=== PATIENT | male | born 1940 | race Caucasian/White ===

== ENCOUNTER 2019-05-14 12:42 | Inpatient (IN) ==
--- NOTE | 2019-05-14 13:08 | Emergency Department Note ---
Entered by Teresa Bueno acting as a scribe for Samuel Pardo M.D. History of Present Illness General Chief complaint: Hyperglycemia Time Seen by Provider: 05/14/19 12:57 Source: patient History of Present Illness Onset (ago): hour(s) (this morning) Location: head (general) Pain Consistency: + other (persistent ) Quality: + other (weakness) Associated symptoms: + cough (productive ) and + other (positive cold symptoms; negative pain); no fever/chills Treatments prior to arrival: other (antibiotics) The patient is a 78 year old male with PMHx Hypothyroidism, HLD, Type 2 diabetes, BPH, HTN, CKD stage 3, and adenocarcinoma of lower esophagus who presents to the Emergency Room with complaints of persistent weakness that began this morning. He reports cold symptoms and a productive cough during this time. The patient states that he was diagnosed with pneumonia yesterday and was given antibiotics. He states that he took these this morning. The patient denies taking his insulin last night or today. The patient denies pain and fevers. He reports that he had a biopsy done on his lung at [place] on Monday, 3 days ago. Home Medications Home Medications Medication Instructions Recorded Confirmed Type Lantus U-100 Insulin 90 unit SUBCUT BID 04/20/18 05/14/19 History Ferron-3 Fish Oil 1 cap PO DAILY 04/20/18 05/14/19 History cholecalciferol (vitamin D3) 2,000 unit PO DAILY 04/20/18 05/14/19 History [Vitamin D3] insulin aspart U-100 40 unit SUBCUT AC 04/20/18 05/14/19 History levothyroxine [Levoxyl] 125 mcg PO DAILY 04/20/18 05/14/19 History cyanocobalamin (vitamin B-12) 3,000 mcg PO DAILY 12/25/18 05/14/19 History 3,000 mcg capsule lisinopril 20 1 tab PO DAILY 12/25/18 05/14/19 History mg-hydrochlorothiazide 25 mg tablet apixaban [Eliquis] 5 mg PO BID 05/10/19 05/14/19 History lisinopril 5 mg PO DAILY 05/10/19 05/14/19 History sennosides-docusate sodium 1 tab-cap PO BID PRN 05/10/19 05/14/19 History [Senokot-S] sertraline 200 mg PO DAILY 05/10/19 05/14/19 History enoxaparin 70 mg SUBCUT Q12H 05/14/19 05/14/19 History Allergies Allergy/AdvReac Type Severity Reaction Status Date / Time codeine Allergy Intermediate Swelling Verified 05/14/19 14:13 thimerosal Allergy Intermediate Swelling Verified 05/14/19 14:13 Past Med/Surg History Medical History Adenocarcinoma of esophagus (Chronic) BPH (benign prostatic hyperplasia) (Chronic) CKD (chronic kidney disease) stage 3, GFR 30-59 ml/min (Chronic) Depression (Chronic) H/O deep venous thrombosis (Resolved) HTN (hypertension) (Chronic) Hx antineoplastic chemotherapy (Resolved) Hyperlipidemia (Chronic) Hypothyroidism (Chronic) Iron deficiency anemia (Chronic) Morbid obesity (Chronic) Neuropathy (Chronic) Osteoarthritis (Chronic) 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 Brother , Passed as a child due to drowning No problems noted. Brother No problems noted. Sister , Passed age 82 of [place] No problems noted. Daughter No problems noted. Daughter No problems noted. Son No problems noted. Family/Other Bladder cancer Granddaughter - Currently has () Cervical ca Had resected - no recurrence Social History Preferred Language: Vietnamese Communication Ability: Effective Visual Impairment: No Limitations Hearing Ability: Normal Contact Center Analyst Required: No Beliefs That Will Affect Care: None marital status: Current Living Situation: Alone Current Living Situation Comment: "daughter lives in house next to me" current occupational status: retired current occupation: Retired [employer] Other Information That Helps Us Care for You: Yes Feels Safe at Home: Yes Safety Concerns: Feels Safe At This Time Smoking Status: Former smoker Tobacco Type: cigarettes ; packs per day: 3 ; Cigarettes Per Day: 1.5 packs/day ; Do You Dip or Chew Tobacco: No ; Second Hand Exposure: Yes ; Tobacco Cessation Education Requested by Patient: No Hx Alcohol Use: No Hx Substance Use: No Childhood Exposure to Second-Hand Smoke: Yes caffeine: Yes (2-3 cups of coffee/day) Review of Systems See HPI for pertinent positives & negatives. and A total of 10 systems reviewed and were otherwise negative Physical Exam Vital Signs Vital Signs - 24 hr 05/14/19 12:58 05/14/19 14:33 05/14/19 15:07 Temperature 36.8 C Temperature Source Oral Pulse Rate 94 H Pulse Rate [Apical] 90 Pulse Rate [Left Finger] 92 H Respiratory Rate 20 22 18 Respiratory Effort / Characteristics Non-Labored Spontaneous Blood Pressure 141/69 H Blood Pressure [Left Arm] 151/69 H Blood Pressure Mean 93 Blood Pressure Mean [Left Arm] 96 Pulse Oximetry 92 92 92 Oxygen Delivery Method Room Air Room Air Room Air Sepsis Recent Fever Within 48 Hours No Sepsis New/Unexplained Change in Mental Status No Sepsis Action Taken by Nursing No Action Required GENERAL: Awake, alert, weak-appearing, in no distress. Poor historian. HENT: Normocephalic, atraumatic. EYES: Normal conjunctiva. Sclera non-icteric. NECK: Supple. No nuchal rigidity. RESPIRATORY: Normal respiratory effort. CTAB. CARDIAC: Normal rate. Normal rhythm. Extremities warm and well perfused. GI: Soft, non-distended. No tenderness to palpation. No rebound or guarding. No masses. RECTAL: Deferred. MUSCULOSKELETAL: Atraumatic. Chest examination reveals no tenderness. There is no CVA tenderness to palpation. LOWER EXTREMITIES: Calves are equal size bilaterally and non-tender. No edema NEURO: Normal sensorium. No sensory or motor deficits noted. No facial droop. SKIN: Warm and dry. No rash or jaundice noted. Course Course 1302: Past medical records reviewed. The patient was evaluated in room C9. A complete history and physical exam was performed. 1420: I checked on and updated the patient on all results. 1500: I discussed the case with Kaykay Cruz PA-C who accepts the patient for further evaluation under Dr. Gupta Hospitalist service. 1507: I discussed the case with Dr. Sauer-Nephrology who recommends imaging, a childress catheter, and bicarbonate for the patient. Administered Medications Sodium Bicarbonate 150 meq/ (Dextrose) 1,150 mls @ 125 mls/hr IV .Q9H12M NAJMA Stop: 06/13/19 15:14 Last Admin: 05/14/19 15:43 Dose: 125 mls/hr Documented by: [id number] Discontinued Medications Albuterol (Duoneb) 3 ml NEB NOW STA Stop: 05/14/19 14:50 Last Admin: 05/14/19 15:06 Dose: 3 ml Documented by: [id number] Sodium Chloride (Nss) 500 mls @ 999 mls/hr IV .Q31M NAJMA Stop: 05/14/19 13:45 Last Infusion: 05/14/19 16:20 Dose: 0 mls/hr Documented by: [id number] Admin: 05/14/19 13:53 Dose: 999 mls/hr Documented by: [id number] Piperacillin Sod/Tazobactam Sod (Zosyn) 4.5 gm in 120 mls @ 240 mls/hr IV NOW ONE Stop: 05/14/19 14:49 Last Infusion: 05/14/19 16:20 Dose: 0 mls/hr Documented by: [id number] Admin: 05/14/19 14:32 Dose: 240 mls/hr Documented by: [id number] Calcium Gluconate 1,000 mg/ (Sodium Chloride) 60 mls @ 240 mls/hr IV NOW STA Stop: 05/14/19 15:02 Last Infusion: 05/14/19 16:20 Dose: 0 mls/hr Documented by: [id number] Admin: 05/14/19 15:43 Dose: 240 mls/hr Documented by: [id number] Sodium Chloride (Nss 1000ml) 2,000 mls @ 999 mls/hr IV .Q2H1M ONE Stop: 05/14/19 16:49 Last Infusion: 05/14/19 17:44 Dose: 0 mls/hr Documented by: [id number] Admin: 05/14/19 15:03 Dose: 999 mls/hr Documented by: [id number] Insulin Human Regular (Novolin R U-100 Per Unit) 10 units IV NOW STA Stop: 05/14/19 14:57 Last Admin: 05/14/19 15:03 Dose: 10 units Documented by: [id number] Cosigned by: [id number] Sodium Bicarbonate (Sodium Bicarbonate 8.4%) 50 meq IV NOW STA Stop: 05/14/19 14:50 Last Admin: 05/14/19 15:03 Dose: 50 meq Documented by: [id number] Critical Care Time Critical Care Time: Yes Total Critical Care Time: 54 I have personally spent 54 minutes of critical care time in the direct management of this patient. This includes bedside care, interpretation of diagnostic studies, and testing, discussion with consultants, patient, and family members, and other required patient management activities. This 54 minutes is in excess of all separately billable procedures. Medical Decision Making Differential Diagnosis Differential Diagnosis includes but is not limited to dehydration, stroke, anemia, hypoglycemia, hyponatremia, hypernatremia, urinary tract infection, sepsis, gastroenteritis, additional abdominal pathology, metabolic abnormalities and infections, pneumonia, bronchitis, COPD/Asthma exacerbation, pneumothorax, pulmonary embolism, congestive heart failure, acute coronary syndrome, and others were considered. Medical Records Attestation: I reviewed the patient's medical records. Home Medications Current Medication List: was personally reviewed by me Laboratory Data Attestation: I reviewed the patient's lab results. Result diagrams: 05/14/19 13:57 05/14/19 13:57 Lab Results 05/14/19 05/14/19 05/14/19 Range/Units 12:56 13:30 13:57 WBC (4.8-10.8) K/uL RBC (4.7-6.1) M/uL Hgb (14.0-18.0) g/dL Hct (42-52) % MCV (80-100) fL MCH (25-34) pg MCHC (32-36) g/dL RDW Std Deviation (36.4-46.3) fL RDW Coeff of Katja (11.5-14.5) % Plt Count (130-400) K/uL MPV (7.4-10.4) fL Immature Gran % (Auto) % Neut % (Auto) % Lymph % (Auto) % Hendry % (Auto) % Eos % (Auto) % Baso % (Auto) % Immature Gran # (Auto) (0.00-0.02) K/uL Neut # (Auto) (1.4-6.5) K/uL Lymph # (Auto) (1.2-3.4) K/uL Hendry # (Auto) (0.11-0.59) K/uL Eos # (Auto) (0-0.5) K/uL Baso # (Auto) (0-0.2) K/uL Sodium (136-145) mmol/L Potassium (3.5-5.1) mmol/L Chloride (98-107) mmol/L Carbon Dioxide (21-32) mmol/L Anion Gap (3-11) BUN (7-18) mg/dl Creatinine (0.6-1.4) mg/dl Est Cr Clr Drug Dosing ml/min Est GFR ( Amer) Est GFR (Non-Af Amer) BUN/Creatinine Ratio (10-20) Glucose (70-99) mg/dl POC Glucose 465 H* (70-99) Lactate 2.6 H* (0.4-2.0) mmol/L Uric Acid (2.6-7.2) mg/dl Calcium (8.5-10.1) mg/dl Phosphorus (2.5-4.9) mg/dl Magnesium (1.8-2.4) mg/dl Total Bilirubin (0.2-1) mg/dl AST (15-37) U/L ALT (12-78) U/L Alkaline Phosphatase (45-117) U/L Troponin I (0-0.045) ng/ml Total Protein (6.4-8.2) gm/dl Albumin (3.4-5.0) gm/dl Globulin (2.5-4.0) gm/dl Albumin/Globulin Ratio (0.9-2) Beta-Hydroxybutyric Acd (0.2-2.81) mg/dl TSH (0.300-4.500) uIu/ml Influenza Type A (PCR) Neg for Influ A (Neg) Influenza Type B (PCR) Neg for Influ B (Neg) 05/14/19 05/14/19 05/14/19 Range/Units 13:57 13:57 13:57 WBC 42.19 H* (4.8-10.8) K/uL RBC 3.43 L (4.7-6.1) M/uL Hgb 10.8 L (14.0-18.0) g/dL Hct 33.5 L (42-52) % MCV 97.7 (80-100) fL MCH 31.5 (25-34) pg MCHC 32.2 (32-36) g/dL RDW Std Deviation 49.9 H (36.4-46.3) fL RDW Coeff of Katja 14.1 (11.5-14.5) % Plt Count 586 H (130-400) K/uL MPV 8.5 (7.4-10.4) fL Immature Gran % (Auto) 1.9 % Neut % (Auto) 94.1 % Lymph % (Auto) 1.9 % Hendry % (Auto) 1.9 % Eos % (Auto) 0.0 % Baso % (Auto) 0.2 % Immature Gran # (Auto) 0.81 H (0.00-0.02) K/uL Neut # (Auto) 39.66 H (1.4-6.5) K/uL Lymph # (Auto) 0.81 L (1.2-3.4) K/uL Hendry # (Auto) 0.82 H (0.11-0.59) K/uL Eos # (Auto) 0.01 (0-0.5) K/uL Baso # (Auto) 0.08 (0-0.2) K/uL Sodium 129 L (136-145) mmol/L Potassium 7.9 H* (3.5-5.1) mmol/L Chloride 101 (98-107) mmol/L Carbon Dioxide 17 L (21-32) mmol/L Anion Gap 11.0 (3-11) BUN 65 H (7-18) mg/dl Creatinine 4.11 H (0.6-1.4) mg/dl Est Cr Clr Drug Dosing 19.5 ml/min Est GFR ( Amer) 15.1 Est GFR (Non-Af Amer) 13.0 BUN/Creatinine Ratio 15.9 (10-20) Glucose 493 H* (70-99) mg/dl POC Glucose (70-99) Lactate (0.4-2.0) mmol/L Uric Acid 8.2 H (2.6-7.2) mg/dl Calcium 9.1 (8.5-10.1) mg/dl Phosphorus 4.5 (2.5-4.9) mg/dl Magnesium 1.9 (1.8-2.4) mg/dl Total Bilirubin 0.2 (0.2-1) mg/dl AST 105 H (15-37) U/L ALT 58 (12-78) U/L Alkaline Phosphatase 107 (45-117) U/L Troponin I 0.019 (0-0.045) ng/ml Total Protein 8.5 H (6.4-8.2) gm/dl Albumin 2.6 L (3.4-5.0) gm/dl Globulin 5.9 H (2.5-4.0) gm/dl Albumin/Globulin Ratio 0.4 L (0.9-2) Beta-Hydroxybutyric Acd 4.73 H (0.2-2.81) mg/dl TSH 3.100 (0.300-4.500) uIu/ml Influenza Type A (PCR) (Neg) Influenza Type B (PCR) (Neg) Imaging Data Radiologist's Impression: Radiology results as stated below per my review and the radiologist's interpretation: XR chest 1V portable CLINICAL HISTORY: weakness COMPARISON STUDY: 05/10/2019 FINDINGS: The cardiac and mediastinal contours remain stable. A right-sided A- Port catheter is again visualized. A 4.5 cm right midlung zone is again visualized.[There are no pleural effusions. There is no pneumothorax. There is no failure. IMPRESSION: 1. Persistent 4.5 cm right midlung zone opacity. No significant change from the preceding study. Electronically signed by: Filippo Quiles M.D. 05/14/2019 1:[address] SCAN OF THE ABDOMEN AND PELVIS WITHOUT IV CONTRAST CLINICAL HISTORY: Renal failure. COMPARISON STUDY: PET/CT dated 04/27/2019. TECHNIQUE: CT scan of the abdomen and pelvis is performed from the lung bases to the proximal femora. Images are reviewed in the axial, sagittal, and coronal planes. IV contrast was not administered for this examination due to poor renal function. Note that the examination is suboptimal without oral and IV contrast. A dose lowering technique was utilized adhering to the principles of ALARA. CT DOSE: 1697.25 mGy.cm FINDINGS: Lung bases: The heart is normal in size and without pericardial effusion. There is a 5.3 cm mass lesion in the right lung base. Trace pleural effusions are noted with bibasilar scarring/atelectasis. A calcified granuloma is noted at the left lung base. There is a small hiatal hernia. Liver: The unenhanced liver is normal in size, contour, and attenuation. There is no intrahepatic biliary ductal dilatation. Gallbladder: Unremarkable. Spleen: Normal in size and attenuation. Pancreas: The unenhanced pancreas is atrophic and grossly unremarkable. Adrenal glands: Unremarkable. Kidneys: The unenhanced kidneys are atrophic and without hydronephrosis. There are no renal calculi identified. Cortical and parapelvic cyst in the left kidney measure up to 4.7 cm. Additional smaller cysts are seen bilaterally. Abdominal vasculature: The abdominal aorta is normal in course and caliber noting moderate atherosclerotic calcification. Bowel: There is moderate colonic fecal retention. No bowel obstruction is seen. There is mild/moderate colonic diverticulosis without CT evidence of acute diverticulitis. The appendix is not visualized. Peritoneum: There is no intraperitoneal free air or abdominal ascites. Lymphadenopathy: None. Pelvic viscera: The prostate gland is enlarged and heterogeneous noting median lobe hypertrophy. The bladder is distended. The bladder wall is mildly thickened and trabeculated indicating chronic outlet obstruction. Skeletal structures: The skeletal structures are osteopenic. Moderate lumbosacral spondylosis is observed. 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 Advanced osteoarthritic change is noted in the left hip. No lytic or blastic lesions are seen. IMPRESSION: 1. There are no acute infectious or inflammatory findings in the abdomen or pelvis. 2. The kidneys are atrophic and without hydronephrosis. 3. The bladder is distended. The prostate gland is enlarged and there is evidence of chronic outlet obstruction. 4. A 5.3 cm mass lesion is seen at the right lung base. Correlation with the patient's oncological history will be required. 5. Trace pleural effusions. 6. Constipation. 7. Additional findings as above. Electronically signed by: Angel Luis Greene M.D. 05/14/2019 4:47 PM ECG Data Attestation: I personally reviewed and interpreted this ECG as follows: Indication: + SOB/dyspnea Rate (beats per minute): 92 Rhythm: + normal sinus ECG Intervals/blocks: + Left bundle branch block; no Normal QRS (Widened) ECG [place]: + Left axis deviation ECG ST segments: no ST elevation ECG Findings: no PVCs Comparison ECG Date: from (03/26/1997) Change: the following changes noted (left bundle branch block is new ) Blood Pressure Blood Pressure Findings: Elevated blood pressure Blood Pressure Disposition: further management by hospitalist LESLEY Narrative Patient is a 78-year-old gentleman with a history of CKD, hypertension, type 2 diabetes, hypothyroidism, and venous stasis ulcerations presenting today via ambulance with report of elevated blood sugar and weakness. Patient states he follows at the [facility]. The patient reports that he had a lung biopsy over the weekend and yesterday was diagnosed with pneumonia. Reportedly started Au gmentin and doxycycline. States feels weak overnight and take any insulin last night or this morning. Was too weak to get out of bed this morning and did not have much to eat. Blood sugar into the 500s for EMS and in the mid 400s upon check here. Patient has no significant wounds on his lower extremities and no significant edema, trace only. Patient does endorse some URI symptoms. Endorses a bit of a cough. Is on anticoagulation per his report. No trauma reported. No focal deficits. Patient denies any pain. Patient is a poor historian. Basic lab work were obtained along with blood cultures, lactate, influenza testing and basic labs along with chest x-ray. Given fluid bolus here. Review of medical records shows evidence that the patient had a CT-guided biopsy here on the with pathology showing concerning findings for lung abscess. Patient with significant leukocytosis here. Given microbiology from the prior biopsy started on Zosyn for broad-spectrum coverage including anaerobes. Blood cultures were again were obtained. Patient requires admission for further care of his lung abscess/infection likely causing his weakness. Discussed with case management who conferred with the [facility] given insurance status. Patient's laboratory studies significantly returned with evidence of acute renal failure with creatinine greater than 4 and hyperkalemia with hyponatremia. Discussed with hospitalist and nephrology for admission. Given calcium, bicarbonate, insulin, IV fluid, DuoNeb to help with his hyperkalemia. EKG with QRS widening. [facility] later relates the patient had a creatinine of about 2.1 yesterday and a potassium around 6. Records are pending from there. Family later arrives and confirms this. Evidently received a dose of Kayexalate without bowel movement since yesterday. Childress was placed with several hundred of moderately dark urine coming out. More recent output appears lightening in color. Ct abdomen pelvis with no hydronephrosis and some chronic outlet obstruction. Hospitalist team to follow closely on the floor. Impression & Plan Acute renal failure, Hyperkalemia, Sepsis, Abscess of lung, Dehydration Discharge Plan Visit Data *Final* Discharge Date/Time: 05/14/19 17:20 Chief Complaint: Hyperglycemia ED Provider: Samuel Pardo Discharge Problem: Acute renal failure, Hyperkalemia, Sepsis, Abscess of lung, Dehydration Patient Disposition: Admitted As Inpatient Discharge Instructions Interventions: ED Discharge Assessment Last Done: 05/14/19 17:20 Discharge Problem: Acute renal failure Qualifiers: Acute renal failure type: unspecified Qualified Code(s): N17.9 - Acute kidney failure, unspecified Sepsis Qualifiers: Sepsis type: sepsis due to unspecified organism Sepsis acute organ dysfunction status: with acute organ dysfunction Severe sepsis acute organ dysfunction type: acute renal failure Acute renal failure type: unspecified Severe sepsis shock status: without septic shock Qualified Code(s): A41.9 - Sepsis, unspecified organism Abscess of lung Qualifiers: Pulmonary abscess pneumonia presence: with pneumonia Laterality: right Lung location: middle lobe of lung Qualified Code(s): J85.1 - Abscess of lung with pneumonia The scribe's documentation has been prepared under my direction and personally reviewed by me in its entirety. I confirm that the note above accurately reflects all work, treatment, procedures, and medical decision making performed by me.
[2019-05-14] MEDS ORDERED: SODIUM CHLORIDE 0.9% 500 ML IV SCH (13:15)
--- NOTE | 2019-05-14 13:36 | XRay Report ---
XR chest 1V portable CLINICAL HISTORY: weakness COMPARISON STUDY: 05/10/2019 FINDINGS: The cardiac and mediastinal contours remain stable. A right-sided A-Port catheter is again visualized. A 4.5 cm right midlung zone is again visualized.[There are no pleural effusions. There is no pneumothorax. There is no failure. IMPRESSION: 1. Persistent 4.5 cm right midlung zone opacity. No significant change from the preceding study. Electronically signed by: Filippo Quiles M.D. 05/14/2019 1:35 PM
[2019-05-14 14:16] LABS: Hematocrit (blood only) 33.5 % (42-52); Hemoglobin 10.8 g/dL (14.0-18.0); Mean Corpuscular Hemoglobin 31.5 pg (25-34); Mean Corpuscular Hgb Conc 32.2 g/dL (32-36); Mean Corpuscular Volume 97.7 fL (80-100); Mean Platelet Volume 8.5 fL (7.4-10.4); Platelet Count 586 K/uL (130-400); RDW Coefficient of Variation 14.1 % (11.5-14.5); RDW Standard Deviation 49.9 fL (36.4-46.3); Red Blood Count 3.43 M/uL (4.7-6.1); White Blood Count 42.19 K/uL (4.8-10.8)
[2019-05-14 14:20] LABS: Influenza A virus by PCR Neg for Influ A (Neg); Influenza B virus by PCR Neg for Influ B (Neg)
[2019-05-14] MEDS ORDERED: PIPERACILLIN/TAZOBACTAM 4.5 GM/120 ML BAG IV ONE (14:20)
[2019-05-14] MEDS ORDERED: PIPERACILL/TAZOBAC CONSULT ACTIVE PRN ×2 (14:20→17:45)
[2019-05-14 14:44] LABS: Albumin Globulin Ratio 0.4 (0.9-2); Albumin Level 2.6 gm/dl (3.4-5.0); BUN Creatinine Ratio 15.9 (10-20); Bilirubin,Total 0.2 mg/dl (0.2-1); Calcium 9.1 mg/dl (8.5-10.1); Creatinine Clr Calc Pharmacy 19.5 ml/min; Est GFR (African American) 15.1; Globulin 5.9 gm/dl (2.5-4.0); Magnesium 1.9 mg/dl (1.8-2.4); Potassium 7.9 mmol/L (3.5-5.1); Thyroid Stimulating Hormone 3.1 uIu/ml (0.300-4.500); Total Protein 8.5 gm/dl (6.4-8.2); Troponin I 0.019 ng/ml (0-0.045)
[2019-05-14] MEDS ORDERED: CALCIUM GLUCONATE 10% 1,000 MG in SODIUM CHLORIDE 0.9% 50 ML IV STA (14:48)
[2019-05-14] MEDS ORDERED: SODIUM BICARB 8.4% INJ 50 MEQ/50 ML SYR IV STA (14:49)
[2019-05-14] MEDS ORDERED: SODIUM CHLORIDE 0.9% 1000ML 2,000 ML IV ONE (14:49)
[2019-05-14] MEDS ORDERED: ALBUT/IPRATROP 3MG/0.5MG NEB 3 ML VIAL NEB STA (14:49)
[2019-05-14 14:51] LABS: Basophils # (auto) 0.08 K/uL (0-0.2); Basophils % (auto) 0.2 %; Eosinophils # (auto) 0.01 K/uL (0-0.5); Immature Granulocytes # (auto) 0.81 K/uL (0.00-0.02); Immature Granulocytes % (auto) 1.9 %; Lymphocytes # (auto) 0.81 K/uL (1.2-3.4); Lymphocytes % (auto) 1.9 %; Monocytes # (auto) 0.82 K/uL (0.11-0.59); Monocytes % (auto) 1.9 %; Neutrophils # (auto) 39.66 K/uL (1.4-6.5); Neutrophils % (auto) 94.1 %
[2019-05-14] MEDS ORDERED: NovoLIN-R INSULIN PER UNIT CHARGE IV STA (14:56)
[2019-05-14 15:09] LABS: Beta-Hydroxybutyrate 4.73 mg/dl (0.2-2.81)
[2019-05-14] MEDS ORDERED: SODIUM BICARBONATE 8.4% 100 MEQ in WATER, STERILE 1,000 ML IV SCH (15:15)
[2019-05-14] MEDS: SODIUM BICARBONATE 8.4% 150 MEQ in DEXTROSE 5% 1,000 ML IV SCH (15:43)
--- NOTE | 2019-05-14 15:56 | History & Physical Report ---
Date of Service May 14, 2019 Assessment & Plan (1) Sepsis: (2) Leukemoid reaction: (3) Pneumonia: (4) Acute renal failure: (5) CKD (chronic kidney disease) stage 3, GFR 30-59 ml/min: (6) Hyperkalemia: (7) Adenocarcinoma of lower esophagus: (8) Morbid obesity: (9) Depression: (10) HTN (hypertension): (11) Type 2 diabetes mellitus: (12) Hyperlipidemia: (13) Hypothyroidism: (14) Hyponatremia: 78 yo male c Sepsis and Leukemoid reaction sec to RLL Pneumonia. Sepsis causing acute renal failure and then resultant hyperkalemia along c [facility]ME-I Nephrology evaluation, he has been given sodium bicarb, Insulin, Glucose, and calcium gluconate in the emergency room, he was given Kayexalate at the [facility], uric acid and phosphorus have been ordered, serial labs, he has been started on antibiotics, Infectious Disease has been consulted for Sepsis and the leukemoid reaction, IV fluids, nebulizers. Serial labs, Tele-PCU History of Present Illness 78-year-old white male with a past medical history of lung mass, pneumonia, DVT, obesity, hypertension, hypothyroidism, chronic kidney disease who comes in complaining of generalized weakness. He said it got progressively worse over the last couple of days when he came into the emergency room he was found to have a blood sugar of 500 and white blood cell count of 42. He was also found to have a potassium of 7.9 and was hyponatremic and hyperkalemic. He was seen at [facility] on 13 May. At that tome they wanted to admit him, but he didn't want to stay. During that encounter, his WBCs were 17.6 and was sent home on Augmentin and Doxycycline. Today his WBCs are 42, but he doesn't look bad at all. At the [facility] his CXR showed a RLL masslike consolidation favoring to reflect Pneumonia-underlying malignancy not excluded. PMH-lung cancer, DVT, chronic kidney disease, obesity, hypertension, hypothyroidism, diabetes. PSH-appendectomy FH mother of pneumonia, father of a CVA, he has 3 healthy children. SOC-quit tobacco 10 years ago was a pack-a-day smoker for 45 years, occasionally drinks alcohol he is a and he retired from a [employer] Primary Care Provider: Jovan Ren MD Allergies Allergy/AdvReac Type Severity Reaction Status Date / Time codeine Allergy Intermediate Swelling Verified 05/14/19 14:13 thimerosal Allergy Intermediate Swelling Verified 05/14/19 14:13 Home Medications Home Medications Medication Instructions Recorded Confirmed Type Lantus U-100 Insulin 90 unit SUBCUT BID 04/20/18 05/14/19 History [place]-3 Fish Oil 1 cap PO DAILY 04/20/18 05/14/19 History cholecalciferol (vitamin D3) 2,000 unit PO DAILY 04/20/18 05/14/19 History [Vitamin D3] insulin aspart U-100 40 unit SUBCUT AC 04/20/18 05/14/19 History levothyroxine [Levoxyl] 125 mcg PO DAILY 04/20/18 05/14/19 History cyanocobalamin (vitamin B-12) 3,000 mcg PO DAILY 12/25/18 05/14/19 History 3,000 mcg capsule lisinopril 20 1 tab PO DAILY 12/25/18 05/14/19 History mg-hydrochlorothiazide 25 mg tablet apixaban [Eliquis] 5 mg PO BID 05/10/19 05/14/19 History lisinopril 5 mg PO DAILY 05/10/19 05/14/19 History sennosides-docusate sodium 1 tab-cap PO BID PRN 05/10/19 05/14/19 History [Senokot-S] sertraline 200 mg PO DAILY 05/10/19 05/14/19 History enoxaparin 70 mg SUBCUT Q12H 05/14/19 05/14/19 History Past Med/Surg History Medical History Adenocarcinoma of esophagus (Chronic) BPH (benign prostatic hyperplasia) (Chronic) CKD (chronic kidney disease) stage 3, GFR 30-59 ml/min (Chronic) Depression (Chronic) H/O deep venous thrombosis (Resolved) HTN (hypertension) (Chronic) Hx antineoplastic chemotherapy (Resolved) Hyperlipidemia (Chronic) Hypothyroidism (Chronic) Iron deficiency anemia (Chronic) Morbid obesity (Chronic) Neuropathy (Chronic) Osteoarthritis (Chronic) 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 Brother , Passed as a child due to drowning No problems noted. Brother No problems noted. Sister , Passed age 82 of [place] No problems noted. Daughter No problems noted. Daughter No problems noted. Son No problems noted. Family/Other Bladder cancer Granddaughter - Currently has () Cervical ca Had resected - no recurrence Social History Preferred Language: Montenegrin Communication Ability: Effective Visual Impairment: No Limitations Hearing Ability: Normal Coiled Tubing Operator Required: No Beliefs That Will Affect Care: None marital status: Current Living Situation: Alone Current Living Situation Comment: "daughter lives in house next to me" current occupational status: retired current occupation: Retired [employer] Feels Safe at Home: Yes Smoking Status: Former smoker Tobacco Type: cigarettes ; packs per day: 3 ; Cigarettes Per Day: 1.5 packs/day ; Second Hand Exposure: No ; Hx Alcohol Use: No Hx Substance Use: No Childhood Exposure to Second-Hand Smoke: Yes caffeine: Yes (2-3 cups of coffee/day) Results & Data Vital Signs (Past 12 Hours) Vital Signs Temp Pulse Pulse Pulse Resp BP BP 05/14/19 15:07 92 H 18 05/14/19 14:33 90 22 151/69 H 05/14/19 12:58 36.8 C 94 H 20 141/69 H Pulse Ox 05/14/19 15:07 92 05/14/19 14:33 92 05/14/19 12:58 92 Allergies codeine Allergy (Intermediate, Verified 05/14/19 14:13) Swelling thimerosal Allergy (Intermediate, Verified 05/14/19 14:13) Swelling Height/Weight/Isolation Height 5 ft 10 in Weight 123.6 kg Chemistry 05/14/19 13:57 Sodium 129 L Potassium 7.9 H* Chloride 101 Carbon Dioxide 17 L Anion Gap 11.0 BUN 65 H Creatinine 4.11 H Glucose 493 H* Microbiology 05/14/19 13:37 Blood Aerobic Blood Culture - Pending 05/14/19 13:37 Blood Anaerobic Blood Culture - Pending 05/14/19 13:47 Blood Aerobic Blood Culture - Pending 05/14/19 13:47 Blood Anaerobic Blood Culture - Pending Code Status & VTE Plan VTE Prophylaxis Plan VTE Prophylaxis will be ordered: Yes
[2019-05-14 16:04] LABS: Phosphorus 4.5 mg/dl (2.5-4.9); Uric Acid 8.2 mg/dl (2.6-7.2)
--- NOTE | 2019-05-14 16:48 | CT Scan Report ---
CT SCAN OF THE ABDOMEN AND PELVIS WITHOUT IV CONTRAST CLINICAL HISTORY: Renal failure. COMPARISON STUDY: PET/CT dated 04/27/2019. TECHNIQUE: CT scan of the abdomen and pelvis is performed from the lung bases to the proximal femora. Images are reviewed in the axial, sagittal, and coronal planes. IV contrast was not administered for this examination due to poor renal function. Note that the examination is suboptimal without oral an d IV contrast. A dose lowering technique was utilized adhering to the principles of ALARA. CT DOSE: 1697.25 mGy.cm FINDINGS: Lung bases: The heart is normal in size and without pericardial effusion. There is a 5.3 cm mass lesi on in the right lung base. Trace pleural effusions are noted with bibasilar scarring/atelectasis. A c alcified granuloma is noted at the left lung base. There is a small hiatal hernia. Liver: The unenhanced liver is normal in size, contour, and attenuation. There is no intrahepatic jesus iary ductal dilatation. Gallbladder: Unremarkable. Spleen: Normal in size and attenuation. Pancreas: The unenhanced pancreas is atrophic and grossly unremarkable. Adrenal glands: Unremarkable. Kidneys: The unenhanced kidneys are atrophic and without hydronephrosis. There are no renal calculi i dentified. Cortical and parapelvic cyst in the left kidney measure up to 4.7 cm. Additional smaller c ysts are seen bilaterally. Abdominal vasculature: The abdominal aorta is normal in course and caliber noting moderate atheroscle rotic calcification. Bowel: There is moderate colonic fecal retention. No bowel obstruction is seen. There is mild/moderat e colonic diverticulosis without CT evidence of acute diverticulitis. The appendix is not visualized . Peritoneum: There is no intraperitoneal free air or abdominal ascites. Lymphadenopathy: None. Pelvic viscera: The prostate gland is enlarged and heterogeneous noting median lobe hypertrophy. The bladder is distended. The bladder wall is mildly thickened and trabeculated indicating chronic outlet obstruction. Skeletal structures: The skeletal structures are osteopenic. Moderate lumbosacral spondylosis is obse rved. 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 Advanced osteoarthritic ch delores is noted in the left hip. No lytic or blastic lesions are seen. IMPRESSION: 1. There are no acute infectious or inflammatory findings in the abdomen or pelvis. 2. The kidneys are atrophic and without hydronephrosis. 3. The bladder is distended. The prostate gland is enlarged and there is evidence of chronic outlet o bstruction. 4. A 5.3 cm mass lesion is seen at the right lung base. Correlation with the patient's oncological hi story will be required. 5. Trace pleural effusions. 6. Constipation. 7. Additional findings as above. Electronically signed by: Angel Luis Greene M.D. 05/14/2019 4:47 PM
[2019-05-14 17:13] LABS: Appearance Urine Cloudy (Clear); Bacteria Urine Automated Negative (Negative); Bilirubin Urine Negative (Negative); Blood Urine 3+ (Negative); Color Urine Yellow; Glucose Urine UA 1+ (Negative); Ketones Urine Negative (Negative); Leukocyte Esterase Urine Negative (Negative); Nitrite Urine Negative (Negative); Protein Urine 1+ (Negative); Specific Gravity Urine 1.021 (1.000-1.030); Urobilinogen Urine Negative (Negative)
[2019-05-14 17:38] LABS: Renal Epithelial Cells Urine 0-5 /lpf (0-5)
[2019-05-14] MEDS ORDERED: DOCUSATE SODIUM/SENNA 50/8.6MG TAB PO PRN (17:45)
[2019-05-14] MEDS ORDERED: ACETAMINOPHEN 325 MG TAB PO PRN (17:45)
[2019-05-14] MEDS ORDERED: GLUCOSE 10 TABS/TUBE PO PRN (17:45)
[2019-05-14] MEDS ORDERED: GLUCAGON FOR INJ 1 MG VIAL SQ PRN (17:45)
[2019-05-14] MEDS ORDERED: ALUMINUM/MAGNESIUM SUSP 30 ML UDC PO PRN (17:45)
[2019-05-14] MEDS ORDERED: ONDANSETRON INJ 2 MG/ML 2 ML VIAL IV PRN (17:45)
[2019-05-14] MEDS ORDERED: VANCOMYCIN CONSULT ACTIVE PRN (17:45)
[2019-05-14] MEDS ORDERED: DEXTROSE 50% 50 ML SYRINGE IV PRN (17:45)
[2019-05-14] MEDS ORDERED: POLYETHYLENE (MIRALAX) 17 GM PACK PO PRN (17:45)
[2019-05-14] MEDS ORDERED: GLUCOSE 40% GEL 15 GM TUBE PO PRN (17:45)
[2019-05-14] MEDS ORDERED: VANCOMYCIN HCL 2,750 MG in SODIUM CHLORIDE 0.9% 500 ML IV ONE (18:15)
[2019-05-14] MEDS ORDERED: PHARMACY GLYCEMIC MGMT CONSULT PRN (18:25)
[2019-05-14] MEDS ORDERED: INSULIN GLARGINE 100 UNIT/ML VIAL SC ONE (18:40)
[2019-05-14 18:45] LABS: Albumin Globulin Ratio 0.4 (0.9-2); Albumin Level 2.2 gm/dl (3.4-5.0); BUN Creatinine Ratio 18.5 (10-20); Bilirubin,Total 0.3 mg/dl (0.2-1); Calcium 8.6 mg/dl (8.5-10.1); Creatinine Clr Calc Pharmacy 21.9 ml/min; Est GFR (African American) 17.3; Est GFR (Non-African American) 14.9; Globulin 5.4 gm/dl (2.5-4.0); Total Protein 7.6 gm/dl (6.4-8.2)
[2019-05-14 18:46] LABS: Potassium 5.5 mmol/L (3.5-5.1)
[2019-05-14 18:57] LABS: Beta-Hydroxybutyrate 3.6 mg/dl (0.2-2.81)
[2019-05-14] MEDS ORDERED: INSULIN REGULAR 250 UNITS in SODIUM CHLORIDE 0.9% 247.5 ML IV SCH (19:00)
[2019-05-14] MEDS ORDERED: INSULIN HUMAN REGULAR IV BOLUS 4.5 UNITS in SYRINGE 0 ML IV ONE (19:00)
[2019-05-14] MEDS: INSULIN ASPART 100 UNITS/ML 3 ML PEN SC SCH ×2 (19:10→21:52)
[2019-05-14] MEDS: ALBUT/IPRATROP 3MG/0.5MG NEB 3 ML VIAL NEB SCH ×4 (19:21→19:24)
--- NOTE | 2019-05-14 19:46 | Pharmacy Report ---
Pharmacy Abx Dose Short Note - Date of Service May 14, 2019 - Assessment & Plan Assessment 78 year old M receiving Vancomycin and Zosyn for treatment of sepsis, pneumonia. Day # 1 of antimicrobial therapy. * Pt has history of Stage III CKD. Currently in ARF. * Blood cultures pending * Urine culture pending * MRSA nasal swab ordered Plan Vancomycin IV * Loading dose: 2750 mg (22 mg/kg) * No maintenance dose ordered at this time. * Goal trough level for sepsis/pulm : 15 to 20 mcg/mL * Random level ordered for 05/15/19 with AM labs Piperacillin/tazobactam * 4.5 g bolus administered over 30 minutes, then 4.5 g IV extended infusion every 12 hours for CrCl 20 mL/min or less and dialysis. * Aggressive dosing selected due to critically ill status/BMI 35 or more Pharmacy will continue to follow and will adjust dose/frequency as necessary. Thank you.
--- NOTE | 2019-05-14 20:43 | Pharmacy Report ---
Glycemic Control Consultation - Date of Service May 14, 2019 - Scope Scope: Glycemic Pharmacist consulted for glycemic control and to write orders per formerly [facility] inpatient glycemic control protocol - Objective Weight: 124 kg Accuchecks BSG (last 24hrs): 05/14/19 05/14/19 05/14/19 12:56 13:57 15:52 Glucose 493 H* POC Glucose 465 H* 378 H* 05/14/19 05/14/19 17:36 17:53 Glucose 443 H* POC Glucose 425 H* Laboratory Data (last 24hrs): 05/14/19 05/14/19 13:57 17:53 Potassium 7.9 H* 5.5 H D Carbon Dioxide 17 L 21 Anion Gap 11.0 7.0 Creatinine 4.11 H 3.67 H D Est Cr Clr Drug Dosing 19.5 21.9 Beta-Hydroxybutyric Acd 4.73 H 3.60 H - Recent Pertinent Medications Outpatient Anti-diabetic Regimen: * Lantus 90 units SQ BID * NovoLog 40 units SQ AC Risk Factors for Insulin Resistance: * Infection * Diet - Assessment & Plan Assessment & Plan: ASSESSMENT: * 78yo T2DM male with unknown degree of outpatient control. Will order an A1c but validity will be somewhat questionable secondary to CKD. * Pt admitted with sepsis and RLL Pneumonia causing ARF. Pt with SEVERE hyperglycemia on admission and only received a 10 unit IV regular insulin bolus in ED. * Pt uses 300 units of insulin as an outpatient. Pt did not take his insulin this morning. Hesitant to stress/make-up missed outpatient dosing secondary to RACHEL- this can lead to pharmacodynamic changes in insulin sensitivity causing an more pronounced response to given insulin doses. Instead, will give one time doses of normal outpatient dosing and start IV insulin infusion to make up the difference. * Will dc IV insulin infusion when BSG < 180 x 2 AND IV insulin infusion rate is 1 unit/hr or below. Both criteria to be met to dc * Further basal bolus orders to follow tomorrow PLAN FOR INPATIENT GLYCEMIC CONTROL: * Starting IV insulin infusion per severe stress protocol (starting bolus is 4.5 units and infusion at 4.6 units/hr and then titrate per [facility] calculator) * Goal Range 140 - 180 mg/dl * dc IV insulin infusion when BSG < 180 x 2 AND IV insulin infusion rate is 1 unit/hr or below. Both criteria to be met to dc * Basal insulin * Lantus 90 units SQ x 1 dose tonight. Further dosing based on BSG trends. * Bolus insulin * NovoLog per scale ACHS or Q6hrs while NPO * Goal Range: Low 120 mg/dL - High 150 mg/dL * Correction Factor: 15 mg/dL/unit * Nutritional / Prandial insulin per carb ratio of 1 unit per 4 grams CHO consumed * A1c with AM labs * Please note that the plan above was derived based on current level of insulin resistance and hospital stress. These recommendations are appropriate for inpatient admission only. Plan of care upon discharge will need to be reassessed to avoid potential outpatient hypo/hyperglycemia. Thank you.
[2019-05-14] MEDS: HEPARIN SOD 5,000 UNIT/0.5 ML VIAL SQ SCH (21:37)
[2019-05-14] MEDS: PIPERACILLIN/TAZOBACTAM 4.5 GM in DEXTROSE 5% 100 ML IV SCH (21:51)
[2019-05-14] MEDS ORDERED: VANCOMYCIN HCL 1,000 MG in SODIUM CHLORIDE 0.9% 250 ML IV SCH (23:00)
[2019-05-15] MEDS: INSULIN ASPART 100 UNITS/ML 3 ML PEN SC SCH ×6 (00:29→20:13)
[2019-05-15] MEDS: SODIUM BICARBONATE 8.4% 150 MEQ in DEXTROSE 5% 1,000 ML IV SCH (00:56)
[2019-05-15 00:59] LABS: Albumin Globulin Ratio 0.4 (0.9-2); BUN Creatinine Ratio 19.6 (10-20); Bilirubin,Total 0.2 mg/dl (0.2-1); Calcium 8.1 mg/dl (8.5-10.1); Creatinine Clr Calc Pharmacy 25.9 ml/min; Est GFR (African American) 21.2; Est GFR (Non-African American) 18.3; Globulin 4.9 gm/dl (2.5-4.0); Potassium 4.2 mmol/L (3.5-5.1); Total Protein 6.9 gm/dl (6.4-8.2)
[2019-05-15] MEDS: DC IV INSULIN INFUSION 1 EA DEVI SCH ×6 (04:57→07:44)
[2019-05-15] MEDS: HEPARIN SOD 5,000 UNIT/0.5 ML VIAL SQ SCH (05:55)
[2019-05-15] MEDS: LEVOTHYROXINE SODIUM 125 MCG TABLET PO SCH (05:56)
[2019-05-15 07:20] LABS: Appearance Urine Turbid (Clear); Bacteria Urine Automated Negative (Negative); Bilirubin Urine Negative (Negative); Blood Urine 3+ (Negative); Color Urine Yellow; Epithelial Cell Urine Auto 20-30 /lpf (0-5); Glucose Urine UA Negative (Negative); Ketones Urine Negative (Negative); Leukocyte Esterase Urine 2+ (Negative); Nitrite Urine Negative (Negative); Protein Urine 1+ (Negative); Specific Gravity Urine 1.022 (1.000-1.030); Urobilinogen Urine Negative (Negative); WBC Urine Automated >30 /hpf (0-5)
[2019-05-15 07:26] LABS: Basophils # (auto) 0.02 K/uL (0-0.2); Basophils % (auto) 0.1 %; Eosinophils # (auto) 0.29 K/uL (0-0.5); Eosinophils % (auto) 1.5 %; Hematocrit (blood only) 26.7 % (42-52); Hemoglobin 8.8 g/dL (14.0-18.0); Immature Granulocytes # (auto) 0.25 K/uL (0.00-0.02); Immature Granulocytes % (auto) 1.3 %; Lymphocytes # (auto) 1.45 K/uL (1.2-3.4); Lymphocytes % (auto) 7.5 %; Mean Platelet Volume 8.3 fL (7.4-10.4); Monocytes % (auto) 4.1 %; Neutrophils # (auto) 16.51 K/uL (1.4-6.5); Neutrophils % (auto) 85.5 %; Platelet Count 383 K/uL (130-400); RDW Coefficient of Variation 13.9 % (11.5-14.5); RDW Standard Deviation 47.7 fL (36.4-46.3); Red Blood Count 2.84 M/uL (4.7-6.1); White Blood Count 19.32 K/uL (4.8-10.8)
[2019-05-15] MEDS: ALBUT/IPRATROP 3MG/0.5MG NEB 3 ML VIAL NEB SCH ×4 (07:32→19:20)
[2019-05-15 07:39] LABS: BUN Creatinine Ratio 21.9 (10-20); Calcium 8.4 mg/dl (8.5-10.1); Creatinine Clr Calc Pharmacy 28.4 ml/min; Est GFR (African American) 23.5; Est GFR (Non-African American) 20.3; Potassium 3.9 mmol/L (3.5-5.1)
[2019-05-15 07:42] LABS: Albumin Globulin Ratio 0.4 (0.9-2); Bilirubin,Total 0.2 mg/dl (0.2-1); Globulin 4.8 gm/dl (2.5-4.0); Total Protein 6.8 gm/dl (6.4-8.2)
[2019-05-15 07:52] LABS: Estimated Average Glucose 212 mg/dl
[2019-05-15 07:52] LABS: RBC Urine Automated >30 /hpf (0-4)
[2019-05-15] MEDS: OMEGA-3 (PURIFIED FISH OIL) 1 GM CAP PO SCH (08:24)
[2019-05-15] MEDS: CHOLECALCIFEROL 1,000 UNITS TAB PO SCH (08:24)
[2019-05-15] MEDS: SERTRALINE HCL 100 MG TABLET PO SCH (08:24)
[2019-05-15] MEDS ORDERED: INSULIN GLARGINE 100 UNIT/ML VIAL SC ONE ×3 (09:00→16:30)
--- NOTE | 2019-05-15 10:33 | Nephrology Consultation ---
Date of Consultation May 15, 2019 Assessment & Plan (1) Acute renal failure: Patient with acute kidney injury likely due to ischemic ATN in setting of sepsis. His creatinine on admission was 4.1. His baseline is not clear likely in the twos. Patient gets his care at the [facility]. Creatinine is improving to 2.[address] scan of the abdomen showed atrophic kidneys with no hydronephrosis. Management of ATN is supportive. -No need for IV fluids now. -Monitor input output with daily BMP -Avoid nephrotoxins such as NSAIDs and contrast (2) Hyperkalemia: Improved with isotonic bicarbonate infusion. Patient should be on a renal diet. Monitor potassium daily. (3) Sepsis: Likely due to pneumonia. Continue vancomycin and Zosyn per primary team. Renally dose antibiotics and monitor vancomycin levels closely as supratherapeutic levels can be nephrotoxic (4) Metabolic acidosis: Due to acute kidney injury. Improving with isotonic bicarbonate infusion. Patient is off sodium bicarbonate now. History of Present Illness Reason for Consultation: RACHEL on CKD Requesting Physician: Candice Parker MD Attending Physician: Candice Parker MD History of Present Illness 78-year-old male with history of esophageal cancer status post chemo 6 months ago per patient report, lung mass which is new, DVT, obesity, hypertension and C KD stage III-IV with baseline creatinine in the twos who was admitted on 05/14/2019 with weakness found to have acute kidney injury with creatinine of 4.1 and hyperkalemia with potassium of 7.9. Patient also had signs of sepsis. He is receiving IV vancomycin and Zosyn. CT scan showing a 5.3 cm lung mass and atrophic kidneys. He denies any shortness of breath today. His potassium was treated medically with the bicarb drip, insulin dextrose. He has a Nelson catheter now. Blood pressure is controlled. He had a urine output of 1.7 L. No vomiting or diarrhea. No NSAID use. Allergies Allergy/AdvReac Type Severity Reaction Status Date / Time codeine Allergy Intermediate Swelling Verified 05/14/19 14:13 thimerosal Allergy Intermediate Swelling Verified 05/14/19 14:13 Home Medications Home Medications Medication Instructions Recorded Confirmed Type Lantus U-100 Insulin 90 unit SUBCUT BID 04/20/18 05/14/19 History [place]-3 Fish Oil 1 cap PO DAILY 04/20/18 05/14/19 History cholecalciferol (vitamin D3) 2,000 unit PO DAILY 04/20/18 05/14/19 History [Vitamin D3] insulin aspart U-100 40 unit SUBCUT AC 04/20/18 05/14/19 History levothyroxine [Levoxyl] 125 mcg PO DAILY 04/20/18 05/14/19 History cyanocobalamin (vitamin B-12) 3,000 mcg PO DAILY 12/25/18 05/14/19 History 3,000 mcg capsule lisinopril 20 1 tab PO DAILY 12/25/18 05/14/19 History mg-hydrochlorothiazide 25 mg tablet apixaban [Eliquis] 5 mg PO BID 05/10/19 05/14/19 History lisinopril 5 mg PO DAILY 05/10/19 05/14/19 History sennosides-docusate sodium 1 tab-cap PO BID PRN 05/10/19 05/14/19 History [Senokot-S] sertraline 200 mg PO DAILY 05/10/19 05/14/19 History enoxaparin 70 mg SUBCUT Q12H 05/14/19 05/14/19 History Patient History Medical History Adenocarcinoma of esophagus (Chronic) BPH (benign prostatic hyperplasia) (Chronic) CKD (chronic kidney disease) stage 3, GFR 30-59 ml/min (Chronic) Depression (Chronic) H/O deep venous thrombosis (Resolved) HTN (hypertension) (Chronic) Hx antineoplastic chemotherapy (Resolved) Hyperlipidemia (Chronic) Hypothyroidism (Chronic) Iron deficiency anemia (Chronic) Morbid obesity (Chronic) Neuropathy (Chronic) Osteoarthritis (Chronic) 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 Brother , Passed as a child due to drowning No problems noted. Brother No problems noted. Sister , Passed age 82 of PA No problems noted. Daughter No problems noted. Daughter No problems noted. Son No problems noted. Family/Other Bladder cancer Granddaughter - Currently has () Cervical ca Had resected - no recurrence Social History Preferred Language: Syrian Communication Ability: Effective Visual Impairment: No Limitations Hearing Ability: Normal Machine Packaging Technician Required: No Beliefs That Will Affect Care: None marital status: Current Living Situation: Alone Current Living Situation Comment: "daughter lives in house next to me" current occupational status: retired current occupation: Retired [employer] Other Information That Helps Us Care for You: Yes Feels Safe at Home: Yes Safety Concerns: Feels Safe At This Time Smoking Status: Former smoker Tobacco Type: cigarettes ; packs per day: 3 ; Cigarettes Per Day: 1.5 packs/day ; Do You Dip or Chew Tobacco: No ; Second Hand Exposure: Yes ; Tobacco Cessation Education Requested by Patient: No Hx Alcohol Use: No Hx Substance Use: No Childhood Exposure to Second-Hand Smoke: Yes caffeine: Yes (2-3 cups of coffee/day) Review of Systems Review of Systems: All systems reviewed & are unremarkable except as noted in HPI & below Physical Exam Physical Exam: General exam: Appears comfortable, no acute distress HEENT: Pupils are equal and reactive to light Neck: No JVD, neck is supple trachea is midline Respiratory system: Crackles in the right base and reduced breath sounds in the bases bilaterally. Gastrointestinal: Abdomen is soft, non distended, non tender, bowel sounds are present CVS: Regular rate and rhythm. No murmurs, rubs or gallops Musculoskeletal: No joint or muscle tenderness Extremities: Non tender, no edema, peripheral pulses are present Neuro: Oriented, no tremors, no focal neurological deficits Skin: No rashes Access: Right port Results & Data Vital Signs (Past 12 Hours) Vital Signs Temp Pulse Pulse Resp BP Pulse Ox 05/15/19 08:00 94 H 05/15/19 07:47 36.9 C 96 H 18 114/69 96 05/15/19 07:32 94 H 18 95 05/15/19 04:38 100/63 05/15/19 04:00 36.9 C 95 H 16 88/52 L 91 05/15/19 00:00 100 H 05/14/19 23:33 36.6 C 102 H 18 136/73 96 Laboratory Results Laboratory Results - last 24 hr 05/14/19 05/14/19 05/14/19 12:56 13:30 13:57 WBC RBC Hgb Hct MCV MCH MCHC RDW Std Deviation RDW Coeff of Katja Plt Count MPV Immature Gran % (Auto) Neut % (Auto) Lymph % (Auto) [place] % (Auto) Eos % (Auto) Baso % (Auto) Immature Gran # (Auto) Neut # (Auto) Lymph # (Auto) [place] # (Auto) Eos # (Auto) Baso # (Auto) Sodium Potassium Chloride Carbon Dioxide Anion Gap BUN Creatinine Est Cr Clr Drug Dosing Est GFR ( Amer) Est GFR (Non-Af Amer) BUN/Creatinine Ratio Glucose POC Glucose 465 H* Estimat Average Glucose Hemoglobin A1c Lactate 2.6 H* Uric Acid Calcium Phosphorus Magnesium Total Bilirubin AST ALT Alkaline Phosphatase Troponin I Total Protein Albumin Globulin Albumin/Globulin Ratio Beta-Hydroxybutyric Acd TSH Random Cortisol Urine Color Urine Appearance Urine pH Ur Specific [place] Urine Protein Urine Glucose (UA) Urine Ketones Urine Blood Urine Nitrite Urine Bilirubin Urine Urobilinogen Ur Leukocyte Esterase Urine WBC (Auto) Urine RBC (Auto) U Hyaline Cast (Auto) U Epithel Cells (Auto) Urine Bacteria (Auto) Ur Renal Epithelial Cell Granular Casts Urine Yeast Ur Random Sodium Nasal Screen MRSA (PCR) Random Vancomycin Influenza Type A (PCR) Neg for Influ A Influenza Type B (PCR) Neg for Influ B 05/14/19 05/14/19 05/14/19 13:57 13:57 13:57 WBC 42.19 H* RBC 3.43 L Hgb 10.8 L Hct 33.5 L MCV 97.7 MCH 31.5 MCHC 32.2 RDW Std Deviation 49.9 H RDW Coeff of Katja 14.1 Plt Count 586 H MPV 8.5 Immature Gran % (Auto) 1.9 Neut % (Auto) 94.1 Lymph % (Auto) 1.9 [place] % (Auto) 1.9 Eos % (Auto) 0.0 Baso % (Auto) 0.2 Immature Gran # (Auto) 0.81 H Neut # (Auto) 39.66 H Lymph # (Auto) 0.81 L [place] # (Auto) 0.82 H Eos # (Auto) 0.01 Baso # (Auto) 0.08 Sodium 129 L Potassium 7.9 H* Chloride 101 Carbon Dioxide 17 L Anion Gap 11.0 BUN 65 H Creatinine 4.11 H Est Cr Clr Drug Dosing 19.5 Est GFR ( Amer) 15.1 Est GFR (Non-Af Amer) 13.0 BUN/Creatinine Ratio 15.9 Glucose 493 H* POC Glucose Estimat Average Glucose Hemoglobin A1c Lactate Uric Acid 8.2 H Calcium 9.1 Phosphorus 4.5 Magnesium 1.9 Total Bilirubin 0.2 AST 105 H ALT 58 Alkaline Phosphatase 107 Troponin I 0.019 Total Protein 8.5 H Albumin 2.6 L Globulin 5.9 H Albumin/Globulin Ratio 0.4 L Beta-Hydroxybutyric Acd 4.73 H TSH 3.100 Random Cortisol Urine Color Urine Appearance Urine pH Ur Specific [place] Urine Protein Urine Glucose (UA) Urine Ketones Urine Blood Urine Nitrite Urine Bilirubin Urine Urobilinogen Ur Leukocyte Esterase Urine WBC (Auto) Urine RBC (Auto) U Hyaline Cast (Auto) U Epithel Cells (Auto) Urine Bacteria (Auto) Ur Renal Epithelial Cell Granular Casts Urine Yeast Ur Random Sodium Nasal Screen MRSA (PCR) Random Vancomycin Influenza Type A (PCR) Influenza Type B (PCR) 05/14/19 05/14/19 05/14/19 15:49 15:49 15:52 WBC RBC Hgb Hct MCV MCH MCHC RDW Std Deviation RDW Coeff of Katja Plt Count MPV Immature Gran % (Auto) Neut % (Auto) Lymph % (Auto) [place] % (Auto) Eos % (Auto) Baso % (Auto) Immature Gran # (Auto) Neut # (Auto) Lymph # (Auto) [place] # (Auto) Eos # (Auto) Baso # (Auto) Sodium Potassium Chloride Carbon Dioxide Anion Gap BUN Creatinine Est Cr Clr Drug Dosing Est GFR ( Amer) Est GFR (Non-Af Amer) BUN/Creatinine Ratio Glucose POC Glucose 378 H* Estimat Average Glucose Hemoglobin A1c Lactate 2.0 Uric Acid Calcium Phosphorus Magnesium Total Bilirubin AST ALT Alkaline Phosphatase Troponin I Total Protein Albumin Globulin Albumin/Globulin Ratio Beta-Hydroxybutyric Acd TSH Random Cortisol 36.02 Urine Color Urine Appearance Urine pH Ur Specific [place] Urine Protein Urine Glucose (UA) Urine Ketones Urine Blood Urine Nitrite Urine Bilirubin Urine Urobilinogen Ur Leukocyte Esterase Urine WBC (Auto) Urine RBC (Auto) U Hyaline Cast (Auto) U Epithel Cells (Auto) Urine Bacteria (Auto) Ur Renal Epithelial Cell Granular Casts Urine Yeast Ur Random Sodium Nasal Screen MRSA (PCR) Random Vancomycin Influenza Type A (PCR) Influenza Type B (PCR) 05/14/19 05/14/19 05/14/19 16:40 16:40 17:36 WBC RBC Hgb Hct MCV MCH MCHC RDW Std Deviation RDW Coeff of Katja Plt Count MPV Immature Gran % (Auto) Neut % (Auto) Lymph % (Auto) [place] % (Auto) Eos % (Auto) Baso % (Auto) Immature Gran # (Auto) Neut # (Auto) Lymph # (Auto) [place] # (Auto) Eos # (Auto) Baso # (Auto) Sodium Potassium Chloride Carbon Dioxide Anion Gap BUN Creatinine Est Cr Clr Drug Dosing Est GFR ( Amer) Est GFR (Non-Af Amer) BUN/Creatinine Ratio Glucose POC Glucose 425 H* Estimat Average Glucose Hemoglobin A1c Lactate Uric Acid Calcium Phosphorus Magnesium Total Bilirubin AST ALT Alkaline Phosphatase Troponin I Total Protein Albumin Globulin Albumin/Globulin Ratio Beta-Hydroxybutyric Acd TSH Random Cortisol Urine Color Yellow Urine Appearance Cloudy A Urine pH 5.0 Ur Specific [place] 1.021 Urine Protein 1+ H Urine Glucose (UA) 1+ H Urine Ketones Negative Urine Blood 3+ H Urine Nitrite Negative Urine Bilirubin Negative Urine Urobilinogen Negative Ur Leukocyte Esterase Negative Urine WBC (Auto) 1-5 Urine RBC (Auto) 5-10 H U Hyaline Cast (Auto) 10-30 H U Epithel Cells (Auto) 10-20 H Urine Bacteria (Auto) Negative Ur Renal Epithelial Cell 0-5 Granular Casts 1-5 H Urine Yeast Not Reportable Ur Random Sodium 68 Nasal Screen MRSA (PCR) Random Vancomycin Influenza Type A (PCR) Influenza Type B (PCR) 05/14/19 05/14/19 05/14/19 17:53 18:07 20:30 WBC RBC Hgb Hct MCV MCH MCHC RDW Std Deviation RDW Coeff of Katja Plt Count MPV Immature Gran % (Auto) Neut % (Auto) Lymph % (Auto) [place] % (Auto) Eos % (Auto) Baso % (Auto) Immature Gran # (Auto) Neut # (Auto) Lymph # (Auto) [place] # (Auto) Eos # (Auto) Baso # (Auto) Sodium 133 L Potassium 5.5 H D Chloride 105 Carbon Dioxide 21 Anion Gap 7.0 BUN 68 H Creatinine 3.67 H D Est Cr Clr Drug Dosing 21.9 Est GFR ( Amer) 17.3 Est GFR (Non-Af Amer) 14.9 BUN/Creatinine Ratio 18.5 Glucose 443 H* POC Glucose 446 H* Estimat Average Glucose Hemoglobin A1c Lactate 1.9 Uric Acid Calcium 8.6 Phosphorus Magnesium Total Bilirubin 0.3 AST 103 H ALT 52 Alkaline Phosphatase 91 Troponin I Total Protein 7.6 Albumin 2.2 L Globulin 5.4 H Albumin/Globulin Ratio 0.4 L Beta-Hydroxybutyric Acd 3.60 H TSH Random Cortisol Urine Color Urine Appearance Urine pH Ur Specific [place] Urine Protein Urine Glucose (UA) Urine Ketones Urine Blood Urine Nitrite Urine Bilirubin Urine Urobilinogen Ur Leukocyte Esterase Urine WBC (Auto) Urine RBC (Auto) U Hyaline Cast (Auto) U Epithel Cells (Auto) Urine Bacteria (Auto) Ur Renal Epithelial Cell Granular Casts Urine Yeast Ur Random Sodium Nasal Screen MRSA (PCR) Random Vancomycin Influenza Type A (PCR) Influenza Type B (PCR) 05/14/19 05/14/19 05/14/19 21:29 22:30 23:32 WBC RBC Hgb Hct MCV MCH MCHC RDW Std Deviation RDW Coeff of Katja Plt Count MPV Immature Gran % (Auto) Neut % (Auto) Lymph % (Auto) [place] % (Auto) Eos % (Auto) Baso % (Auto) Immature Gran # (Auto) Neut # (Auto) Lymph # (Auto) [place] # (Auto) Eos # (Auto) Baso # (Auto) Sodium Potassium Chloride Carbon Dioxide Anion Gap BUN Creatinine Est Cr Clr Drug Dosing Est GFR ( Amer) Est GFR (Non-Af Amer) BUN/Creatinine Ratio Glucose POC Glucose 388 H* 369 H* 283 H Estimat Average Glucose Hemoglobin A1c Lactate Uric Acid Calcium Phosphorus Magnesium Total Bilirubin AST ALT Alkaline Phosphatase Troponin I Total Protein Albumin Globulin Albumin/Globulin Ratio Beta-Hydroxybutyric Acd TSH Random Cortisol Urine Color Urine Appearance Urine pH Ur Specific [place] Urine Protein Urine Glucose (UA) Urine Ketones Urine Blood Urine Nitrite Urine Bilirubin Urine Urobilinogen Ur Leukocyte Esterase Urine WBC (Auto) Urine RBC (Auto) U Hyaline Cast (Auto) U Epithel Cells (Auto) Urine Bacteria (Auto) Ur Renal Epithelial Cell Granular Casts Urine Yeast Ur Random Sodium Nasal Screen MRSA (PCR) Random Vancomycin Influenza Type A (PCR) Influenza Type B (PCR) 05/15/19 05/15/19 05/15/19 00:27 00:27 00:28 WBC RBC Hgb Hct MCV MCH MCHC RDW Std Deviation RDW Coeff of Katja Plt Count MPV Immature Gran % (Auto) Neut % (Auto) Lymph % (Auto) [place] % (Auto) Eos % (Auto) Baso % (Auto) Immature Gran # (Auto) Neut # (Auto) Lymph # (Auto) [place] # (Auto) Eos # (Auto) Baso # (Auto) Sodium 135 L Potassium 4.2 D Chloride 105 Carbon Dioxide 22 Anion Gap 8.0 BUN 61 H Creatinine 3.10 H D Est Cr Clr Drug Dosing 25.9 Est GFR ( Amer) 21.2 Est GFR (Non-Af Amer) 18.3 BUN/Creatinine Ratio 19.6 Glucose 222 H POC Glucose 229 H Estimat Average Glucose Hemoglobin A1c Lactate 1.8 Uric Acid Calcium 8.1 L Phosphorus Magnesium Total Bilirubin 0.2 AST 96 H ALT 48 Alkaline Phosphatase 82 Troponin I Total Protein 6.9 Albumin 2.0 L Globulin 4.9 H Albumin/Globulin Ratio 0.4 L Beta-Hydroxybutyric Acd TSH Random Cortisol Urine Color Urine Appearance Urine pH Ur Specific [place] Urine Protein Urine Glucose (UA) Urine Ketones Urine Blood Urine Nitrite Urine Bilirubin Urine Urobilinogen Ur Leukocyte Esterase Urine WBC (Auto) Urine RBC (Auto) U Hyaline Cast (Auto) U Epithel Cells (Auto) Urine Bacteria (Auto) Ur Renal Epithelial Cell Granular Casts Urine Yeast Ur Random Sodium Nasal Screen MRSA (PCR) Random Vancomycin Influenza Type A (PCR) Influenza Type B (PCR) 05/15/19 05/15/19 05/15/19 01:31 02:00 02:32 WBC RBC Hgb Hct MCV MCH MCHC RDW Std Deviation RDW Coeff of Katja Plt Count MPV Immature Gran % (Auto) Neut % (Auto) Lymph % (Auto) [place] % (Auto) Eos % (Auto) Baso % (Auto) Immature Gran # (Auto) Neut # (Auto) Lymph # (Auto) [place] # (Auto) Eos # (Auto) Baso # (Auto) Sodium Potassium Chloride Carbon Dioxide Anion Gap BUN Creatinine Est Cr Clr Drug Dosing Est GFR ( Amer) Est GFR (Non-Af Amer) BUN/Creatinine Ratio Glucose POC Glucose 210 H 150 H Estimat Average Glucose Hemoglobin A1c Lactate Uric Acid Calcium Phosphorus Magnesium Total Bilirubin AST ALT Alkaline Phosphatase Troponin I Total Protein Albumin Globulin Albumin/Globulin Ratio Beta-Hydroxybutyric Acd TSH Random Cortisol Urine Color Urine Appearance Urine pH Ur Specific [place] Urine Protein Urine Glucose (UA) Urine Ketones Urine Blood Urine Nitrite Urine Bilirubin Urine Urobilinogen Ur Leukocyte Esterase Urine WBC (Auto) Urine RBC (Auto) U Hyaline Cast (Auto) U Epithel Cells (Auto) Urine Bacteria (Auto) Ur Renal Epithelial Cell Granular Casts Urine Yeast Ur Random Sodium Nasal Screen MRSA (PCR) Negative Random Vancomycin Influenza Type A (PCR) Influenza Type B (PCR) 05/15/19 05/15/19 05/15/19 03:32 04:29 05:42 WBC RBC Hgb Hct MCV MCH MCHC RDW Std Deviation RDW Coeff of Katja Plt Count MPV Immature Gran % (Auto) Neut % (Auto) Lymph % (Auto) [place] % (Auto) Eos % (Auto) Baso % (Auto) Immature Gran # (Auto) Neut # (Auto) Lymph # (Auto) [place] # (Auto) Eos # (Auto) Baso # (Auto) Sodium Potassium Chloride Carbon Dioxide Anion Gap BUN Creatinine Est Cr Clr Drug Dosing Est GFR ( Amer) Est GFR (Non-Af Amer) BUN/Creatinine Ratio Glucose POC Glucose 143 H 130 H 133 H Estimat Average Glucose Hemoglobin A1c Lactate Uric Acid Calcium Phosphorus Magnesium Total Bilirubin AST ALT Alkaline Phosphatase Troponin I Total Protein Albumin Globulin Albumin/Globulin Ratio Beta-Hydroxybutyric Acd TSH Random Cortisol Urine Color Urine Appearance Urine pH Ur Specific [place] Urine Protein Urine Glucose (UA) Urine Ketones Urine Blood Urine Nitrite Urine Bilirubin Urine Urobilinogen Ur Leukocyte Esterase Urine WBC (Auto) Urine RBC (Auto) U Hyaline Cast (Auto) U Epithel Cells (Auto) Urine Bacteria (Auto) Ur Renal Epithelial Cell Granular Casts Urine Yeast Ur Random Sodium Nasal Screen MRSA (PCR) Random Vancomycin Influenza Type A (PCR) Influenza Type B (PCR) 05/15/19 05/15/19 05/15/19 05:55 06:34 06:50 WBC RBC Hgb Hct MCV MCH MCHC RDW Std Deviation RDW Coeff of Katja Plt Count MPV Immature Gran % (Auto) Neut % (Auto) Lymph % (Auto) [place] % (Auto) Eos % (Auto) Baso % (Auto) Immature Gran # (Auto) Neut # (Auto) Lymph # (Auto) [place] # (Auto) Eos # (Auto) Baso # (Auto) Sodium Potassium Chloride Carbon Dioxide Anion Gap BUN Creatinine Est Cr Clr Drug Dosing Est GFR ( Amer) Est GFR (Non-Af Amer) BUN/Creatinine Ratio Glucose POC Glucose 102 H Estimat Average Glucose Hemoglobin A1c Lactate Uric Acid Calcium Phosphorus Magnesium Total Bilirubin AST ALT Alkaline Phosphatase Troponin I Total Protein Albumin Globulin Albumin/Globulin Ratio Beta-Hydroxybutyric Acd TSH Random Cortisol Urine Color Yellow Urine Appearance Turbid A Urine pH 5.0 Ur Specific [place] 1.022 Urine Protein 1+ H Urine Glucose (UA) Negative Urine Ketones Negative Urine Blood 3+ H Urine Nitrite Negative Urine Bilirubin Negative Urine Urobilinogen Negative Ur Leukocyte Esterase 2+ H Urine WBC (Auto) >30 H Urine RBC (Auto) >30 H U Hyaline Cast (Auto) 1-5 U Epithel Cells (Auto) 20-30 H Urine Bacteria (Auto) Negative Ur Renal Epithelial Cell Granular Casts 10-20 H Urine Yeast Not Reportable Ur Random Sodium Nasal Screen MRSA (PCR) Random Vancomycin 21.1 Influenza Type A (PCR) Influenza Type B (PCR) 05/15/19 05/15/19 05/15/19 06:50 06:50 06:50 WBC 19.32 H D RBC 2.84 L Hgb 8.8 L Hct 26.7 L MCV 94.0 MCH 31.0 MCHC 33.0 RDW Std Deviation 47.7 H RDW Coeff of Katja 13.9 Plt Count 383 MPV 8.3 Immature Gran % (Auto) 1.3 Neut % (Auto) 85.5 Lymph % (Auto) 7.5 [place] % (Auto) 4.1 Eos % (Auto) 1.5 Baso % (Auto) 0.1 Immature Gran # (Auto) 0.25 H Neut # (Auto) 16.51 H Lymph # (Auto) 1.45 [place] # (Auto) 0.80 H Eos # (Auto) 0.29 Baso # (Auto) 0.02 Sodium 136 Potassium 3.9 Chloride 104 Carbon Dioxide 24 Anion Gap 8.0 BUN 62 H Creatinine 2.84 H Est Cr Clr Drug Dosing 28.4 Est GFR ( Amer) 23.5 Est GFR (Non-Af Amer) 20.3 BUN/Creatinine Ratio 21.9 H Glucose 100 H POC Glucose Estimat Average Glucose 212 Hemoglobin A1c 9.0 H Lactate Uric Acid Calcium 8.4 L Phosphorus Magnesium Total Bilirubin 0.2 AST 94 H ALT 45 Alkaline Phosphatase 77 Troponin I Total Protein 6.8 Albumin 2.0 L Globulin 4.8 H Albumin/Globulin Ratio 0.4 L Beta-Hydroxybutyric Acd TSH Random Cortisol Urine Color Urine Appearance Urine pH Ur Specific [place] Urine Protein Urine Glucose (UA) Urine Ketones Urine Blood Urine Nitrite Urine Bilirubin Urine Urobilinogen Ur Leukocyte Esterase Urine WBC (Auto) Urine RBC (Auto) U Hyaline Cast (Auto) U Epithel Cells (Auto) Urine Bacteria (Auto) Ur Renal Epithelial Cell Granular Casts Urine Yeast Ur Random Sodium Nasal Screen MRSA (PCR) Random Vancomycin Influenza Type A (PCR) Influenza Type B (PCR) 05/15/19 05/15/19 05/15/19 07:30 08:43 09:36 WBC RBC Hgb Hct MCV MCH MCHC RDW Std Deviation RDW Coeff of Katja Plt Count MPV Immature Gran % (Auto) Neut % (Auto) Lymph % (Auto) [place] % (Auto) Eos % (Auto) Baso % (Auto) Immature Gran # (Auto) Neut # (Auto) Lymph # (Auto) [place] # (Auto) Eos # (Auto) Baso # (Auto) Sodium Potassium Chloride Carbon Dioxide Anion Gap BUN Creatinine Est Cr Clr Drug Dosing Est GFR ( Amer) Est GFR (Non-Af Amer) BUN/Creatinine Ratio Glucose POC Glucose 98 169 H 192 H Estimat Average Glucose Hemoglobin A1c Lactate Uric Acid Calcium Phosphorus Magnesium Total Bilirubin AST ALT Alkaline Phosphatase Troponin I Total Protein Albumin Globulin Albumin/Globulin Ratio Beta-Hydroxybutyric Acd TSH Random Cortisol Urine Color Urine Appearance Urine pH Ur Specific [place] Urine Protein Urine Glucose (UA) Urine Ketones Urine Blood Urine Nitrite Urine Bilirubin Urine Urobilinogen Ur Leukocyte Esterase Urine WBC (Auto) Urine RBC (Auto) U Hyaline Cast (Auto) U Epithel Cells (Auto) Urine Bacteria (Auto) Ur Renal Epithelial Cell Granular Casts Urine Yeast Ur Random Sodium Nasal Screen MRSA (PCR) Random Vancomycin Influenza Type A (PCR) Influenza Type B (PCR) (1) Acute renal failure Acute renal failure type: unspecified Qualified Code(s): N17.9 - Acute kidney failure, unspecified
--- NOTE | 2019-05-15 10:34 | Infectious Disease Consult ---
Date of Consultation May 15, 2019 Assessment & Plan (1) Abscess of lung: leukocytosis significantly improved, suspect multifactorial. continue IV abx for now, if blood cultures negative, would suggest transition to po Augmentin, renally dosed, for 21 days for previously diagnosed abscess/pna. History of Present Illness Attending Physician: Candice Parker MD pt admitted with generalized weakness. [facility] cx[facility], was rx Augmentin and doxy, took for 1 day user acceptance tester. also recently had bronch growing S. intermedius. fungal culture negative. In ER was found to have wbc 42, glucose >300 creat 3.6 and K+>7. ID consulted for leukocytosis. He was placed on IV vanco and zosyn, tolerating well. UA >30 wbc but no bacteria noted. Urine and blood cultures pending, blood glucose improved, wbc down to [address] abd revealed a 5.3 cm mass in RLL. recently path negative for malignancy. He is feeling better today. denies cp, sob, cough, no abd pain, no n/v/d. no gu symptoms. no pain at port site, states >1 year old. tolerating abx. Allergies Allergy/AdvReac Type Severity Reaction Status Date / Time codeine Allergy Intermediate Swelling Verified 05/14/19 14:13 thimerosal Allergy Intermediate Swelling Verified 05/14/19 14:13 Home Medications Home Medications Medication Instructions Recorded Confirmed Type Lantus U-100 Insulin 90 unit SUBCUT BID 04/20/18 05/14/19 History [place]-3 Fish Oil 1 cap PO DAILY 04/20/18 05/14/19 History cholecalciferol (vitamin D3) 2,000 unit PO DAILY 04/20/18 05/14/19 History [Vitamin D3] insulin aspart U-100 40 unit SUBCUT AC 04/20/18 05/14/19 History levothyroxine [Levoxyl] 125 mcg PO DAILY 04/20/18 05/14/19 History cyanocobalamin (vitamin B-12) 3,000 mcg PO DAILY 12/25/18 05/14/19 History 3,000 mcg capsule lisinopril 20 1 tab PO DAILY 12/25/18 05/14/19 History mg-hydrochlorothiazide 25 mg tablet apixaban [Eliquis] 5 mg PO BID 05/10/19 05/14/19 History lisinopril 5 mg PO DAILY 05/10/19 05/14/19 History sennosides-docusate sodium 1 tab-cap PO BID PRN 05/10/19 05/14/19 History [Senokot-S] sertraline 200 mg PO DAILY 05/10/19 05/14/19 History enoxaparin 70 mg SUBCUT Q12H 05/14/19 05/14/19 History Patient History Medical History Adenocarcinoma of esophagus (Chronic) BPH (benign prostatic hyperplasia) (Chronic) CKD (chronic kidney disease) stage 3, GFR 30-59 ml/min (Chronic) Depression (Chronic) H/O deep venous thrombosis (Resolved) HTN (hypertension) (Chronic) Hx antineoplastic chemotherapy (Resolved) Hyperlipidemia (Chronic) Hypothyroidism (Chronic) Iron deficiency anemia (Chronic) Morbid obesity (Chronic) Neuropathy (Chronic) Osteoarthritis (Chronic) 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 Brother , Passed as a child due to drowning No problems noted. Brother No problems noted. Sister , Passed age 82 of PA No problems noted. Daughter No problems noted. Daughter No problems noted. Son No problems noted. Family/Other Bladder cancer Granddaughter - Currently has () Cervical ca Had resected - no recurrence Social History Preferred Language: Citizen Of [place] Communication Ability: Effective Visual Impairment: No Limitations Hearing Ability: Normal Chemical Applicator Required: No Beliefs That Will Affect Care: None marital status: Current Living Situation: Alone Current Living Situation Comment: "daughter lives in house next to me" current occupational status: retired current occupation: Retired [employer] Other Information That Helps Us Care for You: Yes Feels Safe at Home: Yes Safety Concerns: Feels Safe At This Time Smoking Status: Former smoker Tobacco Type: cigarettes ; packs per day: 3 ; Cig arettes Per Day: 1.5 packs/day ; Do You Dip or Chew Tobacco: No ; Second Hand Exposure: Yes ; Tobacco Cessation Education Requested by Patient: No Hx Alcohol Use: No Hx Substance Use: No Childhood Exposure to Second-Hand Smoke: Yes caffeine: Yes (2-3 cups of coffee/day) Review of Systems Review of Systems: All systems reviewed & are unremarkable except as noted in HPI & below Physical Exam Constitutional: WD/WN, vitals as above Eyes: PERRL, conjunctivae normal, anicteric sclerae ENMT: external ear and nose normal, oropharynx normal Neck: normal visual inspection Respiratory: normal respiratory effort, lungs clear to auscultation Cardiovascular: RRR, no murmur, no edema Gastrointestinal (Abdomen): normal bowel sounds, soft, nontender, no hepatosplenomegaly Musculoskeletal: no cyanosis or clubbing, extremities motor strength 5/5 Skin: no rashes, warm and dry right chest wall port dressing c/d/i,no erythema, non tender Psychiatric: A+Ox3, euthymic affect Results & Data Vital Signs (Past 12 Hours) Vital Signs Temp Pulse Pulse Resp BP Pulse Ox 05/15/19 08:00 94 H 05/15/19 07:47 36.9 C 96 H 18 114/69 96 05/15/19 07:32 94 H 18 95 05/15/19 04:38 100/63 05/15/19 04:00 36.9 C 95 H 16 88/52 L 91 05/15/19 00:00 100 H 05/14/19 23:33 36.6 C 102 H 18 136/73 96 PG Care Time/CCT Total # of Minutes Spent Total Time Spent with Patient: Total time spent is greater than 50% in coordination of care (as documented) at patient's floor/unit and/or counseling patient: (1) Abscess of lung Laterality: right Lung location: middle lobe of lung Pulmonary abscess pneumonia presence: with pneumonia Qualified Code(s): J85.1 - Abscess of lung with pneumonia
[2019-05-15] MEDS: PIPERACILLIN/TAZOBACTAM 4.5 GM in DEXTROSE 5% 100 ML IV SCH ×2 (10:50→17:50)
--- NOTE | 2019-05-15 10:52 | Hospitalist Progress Note ---
Date of Service May 15, 2019 Assessment & Plan (1) Sepsis: Possible sepsis likely related to recent RLL abscess Had biopsy recently with pathology negative for malignancy but abscess reported Leukocytosis improved significantly Likely due to fluids as well as all cell lines dropped and has got over 6L in 24h Will continue antibiotics (broad spectrum for now) and await culture results. Has remained afebrile Will follow up ID recommendations (2) Pneumonia: Imaging studies reports RLL mass unchanged from prior Likely abscess vs pneumonia per biospy results Continue management as above (3) Acute renal failure: (4) CKD (chronic kidney disease) stage 3, GFR 30-59 ml/min: RACHEL on CKD. Last Cr was 1.5 in 11/2018 Was 4.11 on admission, now 2.84 RACHEL likely ATN in the setting of sepsis. Urine sodium 68 Will follow up nephrology recommendation Avoid nephrotoxins Continue to monitor Cr (5) Hyperkalemia: K was 7.9 on admission Now 3.9. REsolved Likely in setting of RACHEL on CKD and ACEI Continue to hold lisinopril Monitor (6) Adenocarcinoma of lower esophagus: Per Dr Snyder's recent note. Patient is s/p FOLFOX with remission Will follow up with oncology outpatient (7) Morbid obesity: Will need more education and resources for weight loss prior to discharge (8) Depression: Stable Not suicidal Continue sertraline (9) HTN (hypertension): BP currently stable One BP measurement overnight noted to be hypotensive Will continue to hold lisinopril as above (10) Type 2 diabetes mellitus: A1c is 9 Reports he takes lantus 90U BID and novolog 40U tid ac Currently on insulin drip for glycemic management Pharm on board for glycemic management (11) Hypothyroidism: TSH 3.1 Continue levothyroxine (12) Hyponatremia: Pseudohyponatremia Na on admission was 129. Blood glucose was 493 Corrected Na for glucose was 135 Na today is 136 (13) DVT prophylaxis: H/o of malignancy and right LE DVT Patient was on lovenox per previous Dr Snyder's note Patient reported he was changed to eliquis about 2 weeks ago Discussed with Pharm. Due to renal status, will start heparin drip for now and plan to resume apixaban at lower dose later if renal function continues to improve Subjective Patient seen and examined. Has no new complaints today Reports weakness which is improving. Denied any cough, Shortness of breath Review of Systems Review of Systems: All systems reviewed and unremarkable except for mentioned above. Physical Exam Physical Exam: General: Well nourished, well hydrated , average body habitus, no acute distress and not ill appearing Eyes: PERRL, conjunctivae normal, not pale, anicteric sclerae, EOM intact bilaterally ENMT: External ear and nose normal, oropharynx normal Neck: Normal visual inspection, no tracheal deviation, no swelling noted Respiratory: Normal respiratory effort, no respiratory distress, Reduced breath sounds both bases. Mild crackles on right lung zone Cardiovascular: Pulse is RRR. S1 S2 Extremities: no pedal edema Chest (Breasts): Chest: normal inspection of chest Gastrointestinal (Abdomen): Abdomen is not distended, soft, non-tender to palpation, no guarding, no palpable hepatosplenomegaly, normal bowel sounds Musculoskeletal: No cyanosis or clubbing Genitourinary: Nelson in situ Skin: No rash noted on gross inspection, No ulcers noted Neurologic: Alert and oriented x 3, No focal weakness, sensation grossly intact, generally weak Psychiatric: Alert and oriented x 3, euthymic affect, no depressed affect Results & Data Vital Signs (Past 12 Hours) Vital Signs Temp Pulse Pulse Resp BP Pulse Ox 05/15/19 08:00 94 H 05/15/19 07:47 36.9 C 96 H 18 114/69 96 05/15/19 07:32 94 H 18 95 05/15/19 04:38 100/63 05/15/19 04:00 36.9 C 95 H 16 88/52 L 91 05/15/19 00:00 100 H 05/14/19 23:33 36.6 C 102 H 18 136/73 96 Laboratory Results Abnormal lab results 05/14/19 05/14/19 05/14/19 Range/Units 16:40 17:36 17:53 WBC (4.8-10.8) K/uL RBC (4.7-6.1) M/uL Hgb (14.0-18.0) g/dL Hct (42-52) % RDW Std Deviation (36.4-46.3) fL Immature Gran # (Auto) (0.00-0.02) K/uL Neut # (Auto) (1.4-6.5) K/uL [place] # (Auto) (0.11-0.59) K/uL Sodium 133 L (136-145) mmol/L Potassium 5.5 H D (3.5-5.1) mmol/L BUN 68 H (7-18) mg/dl Creatinine 3.67 H D (0.6-1.4) mg/dl BUN/Creatinine Ratio (10-20) Glucose 443 H* (70-99) mg/dl POC Glucose 425 H* (70-99) Hemoglobin A1c (4.5-5.6) % Calcium (8.5-10.1) mg/dl AST 103 H (15-37) U/L Albumin 2.2 L (3.4-5.0) gm/dl Globulin 5.4 H (2.5-4.0) gm/dl Albumin/Globulin Ratio 0.4 L (0.9-2) Beta-Hydroxybutyric Acd 3.60 H (0.2-2.81) mg/dl Urine Appearance (Clear) Urine Protein (Negative) Urine Blood (Negative) Ur Leukocyte Esterase (Negative) Urine WBC (Auto) (0-5) /hpf Urine RBC (Auto) 5-10 H (0-4) /hpf U Hyaline Cast (Auto) 10-30 H (0-5) /lpf U Epithel Cells (Auto) 10-20 H (0-5) /lpf Granular Casts 1-5 H (0) /lpf 05/14/19 05/14/19 05/14/19 Range/Units 20:30 21:29 22:30 WBC (4.8-10.8) K/uL RBC (4.7-6.1) M/uL Hgb (14.0-18.0) g/dL Hct (42-52) % RDW Std Deviation (36.4-46.3) fL Immature Gran # (Auto) (0.00-0.02) K/uL Neut # (Auto) (1.4-6.5) K/uL [place] # (Auto) (0.11-0.59) K/uL Sodium (136-145) mmol/L Potassium (3.5-5.1) mmol/L BUN (7-18) mg/dl Creatinine (0.6-1.4) mg/dl BUN/Creatinine Ratio (10-20) Glucose (70-99) mg/dl POC Glucose 446 H* 388 H* 369 H* (70-99) Hemoglobin A1c (4.5-5.6) % Calcium (8.5-10.1) mg/dl AST (15-37) U/L Albumin (3.4-5.0) gm/dl Globulin (2.5-4.0) gm/dl Albumin/Globulin Ratio (0.9-2) Beta-Hydroxybutyric Acd (0.2-2.81) mg/dl Urine Appearance (Clear) Urine Protein (Negative) Urine Blood (Negative) Ur Leukocyte Esterase (Negative) Urine WBC (Auto) (0-5) /hpf Urine RBC (Auto) (0-4) /hpf U Hyaline Cast (Auto) (0-5) /lpf U Epithel Cells (Auto) (0-5) /lpf Granular Casts (0) /lpf 05/14/19 05/15/19 05/15/19 Range/Units 23:32 00:27 00:28 WBC (4.8-10.8) K/uL RBC (4.7-6.1) M/uL Hgb (14.0-18.0) g/dL Hct (42-52) % RDW Std Deviation (36.4-46.3) fL Immature Gran # (Auto) (0.00-0.02) K/uL Neut # (Auto) (1.4-6.5) K/uL [place] # (Auto) (0.11-0.59) K/uL Sodium 135 L (136-145) mmol/L Potassium (3.5-5.1) mmol/L BUN 61 H (7-18) mg/dl Creatinine 3.10 H D (0.6-1.4) mg/dl BUN/Creatinine Ratio (10-20) Glucose 222 H (70-99) mg/dl POC Glucose 283 H 229 H (70-99) Hemoglobin A1c (4.5-5.6) % Calcium 8.1 L (8.5-10.1) mg/dl AST 96 H (15-37) U/L Albumin 2.0 L (3.4-5.0) gm/dl Globulin 4.9 H (2.5-4.0) gm/dl Albumin/Globulin Ratio 0.4 L (0.9-2) Beta-Hydroxybutyric Acd (0.2-2.81) mg/dl Urine Appearance (Clear) Urine Protein (Negative) Urine Blood (Negative) Ur Leukocyte Esterase (Negative) Urine WBC (Auto) (0-5) /hpf Urine RBC (Auto) (0-4) /hpf U Hyaline Cast (Auto) (0-5) /lpf U Epithel Cells (Auto) (0-5) /lpf Granular Casts (0) /lpf 05/15/19 05/15/19 05/15/19 Range/Units 01:31 02:32 03:32 WBC (4.8-10.8) K/uL RBC (4.7-6.1) M/uL Hgb (14.0-18.0) g/dL Hct (42-52) % RDW Std Deviation (36.4-46.3) fL Immature Gran # (Auto) (0.00-0.02) K/uL Neut # (Auto) (1.4-6.5) K/uL [place] # (Auto) (0.11-0.59) K/uL Sodium (136-145) mmol/L Potassium (3.5-5.1) mmol/L BUN (7-18) mg/dl Creatinine (0.6-1.4) mg/dl BUN/Creatinine Ratio (10-20) Glucose (70-99) mg/dl POC Glucose 210 H 150 H 143 H (70-99) Hemoglobin A1c (4.5-5.6) % Calcium (8.5-10.1) mg/dl AST (15-37) U/L Albumin (3.4-5.0) gm/dl Globulin (2.5-4.0) gm/dl Albumin/Globulin Ratio (0.9-2) Beta-Hydroxybutyric Acd (0.2-2.81) mg/dl Urine Appearance (Clear) Urine Protein (Negative) Urine Blood (Negative) Ur Leukocyte Esterase (Negative) Urine WBC (Auto) (0-5) /hpf Urine RBC (Auto) (0-4) /hpf U Hyaline Cast (Auto) (0-5) /lpf U Epithel Cells (Auto) (0-5) /lpf Granular Casts (0) /lpf 1105/15/19 05/15/19 Range/Units 04:29 05:42 05:55 WBC (4.8-10.8) K/uL RBC (4.7-6.1) M/uL Hgb (14.0-18.0) g/dL Hct (42-52) % RDW Std Deviation (36.4-46.3) fL Immature Gran # (Auto) (0.00-0.02) K/uL Neut # (Auto) (1.4-6.5) K/uL [place] # (Auto) (0.11-0.59) K/uL Sodium (136-145) mmol/L Potassium (3.5-5.1) mmol/L BUN (7-18) mg/dl Creatinine (0.6-1.4) mg/dl BUN/Creatinine Ratio (10-20) Glucose (70-99) mg/dl POC Glucose 130 H 133 H (70-99) Hemoglobin A1c (4.5-5.6) % Calcium (8.5-10.1) mg/dl AST (15-37) U/L Albumin (3.4-5.0) gm/dl Globulin (2.5-4.0) gm/dl Albumin/Globulin Ratio (0.9-2) Beta-Hydroxybutyric Acd (0.2-2.81) mg/dl Urine Appearance Turbid A (Clear) Urine Protein 1+ H (Negative) Urine Blood 3+ H (Negative) Ur Leukocyte Esterase 2+ H (Negative) Urine WBC (Auto) >30 H (0-5) /hpf Urine RBC (Auto) >30 H (0-4) /hpf U Hyaline Cast (Auto) (0-5) /lpf U Epithel Cells (Auto) 20-30 H (0-5) /lpf Granular Casts 10-20 H (0) /lpf 05/15/19 05/15/19 05/15/19 Range/Units 06:34 06:50 06:50 WBC 19.32 H D (4.8-10.8) K/uL RBC 2.84 L (4.7-6.1) M/uL Hgb 8.8 L (14.0-18.0) g/dL Hct 26.7 L (42-52) % RDW Std Deviation 47.7 H (36.4-46.3) fL Immature Gran # (Auto) 0.25 H (0.00-0.02) K/uL Neut # (Auto) 16.51 H (1.4-6.5) K/uL [place] # (Auto) 0.80 H (0.11-0.59) K/uL Sodium (136-145) mmol/L Potassium (3.5-5.1) mmol/L BUN 62 H (7-18) mg/dl Creatinine 2.84 H (0.6-1.4) mg/dl BUN/Creatinine Ratio 21.9 H (10-20) Glucose 100 H (70-99) mg/dl POC Glucose 102 H (70-99) Hemoglobin A1c (4.5-5.6) % Calcium 8.4 L (8.5-10.1) mg/dl AST 94 H (15-37) U/L Albumin 2.0 L (3.4-5.0) gm/dl Globulin 4.8 H (2.5-4.0) gm/dl Albumin/Globulin Ratio 0.4 L (0.9-2) Beta-Hydroxybutyric Acd (0.2-2.81) mg/dl Urine Appearance (Clear) Urine Protein (Negative) Urine Blood (Negative) Ur Leukocyte Esterase (Negative) Urine WBC (Auto) (0-5) /hpf Urine RBC (Auto) (0-4) /hpf U Hyaline Cast (Auto) (0-5) /lpf U Epithel Cells (Auto) (0-5) /lpf Granular Casts (0) /lpf 05/15/19 05/15/19 05/15/19 Range/Units 06:50 08:43 09:36 WBC (4.8-10.8) K/uL RBC (4.7-6.1) M/uL Hgb (14.0-18.0) g/dL Hct (42-52) % RDW Std Deviation (36.4-46.3) fL Immature Gran # (Auto) (0.00-0.02) K/uL Neut # (Auto) (1.4-6.5) K/uL [place] # (Auto) (0.11-0.59) K/uL Sodium (136-145) mmol/L Potassium (3.5-5.1) mmol/L BUN (7-18) mg/dl Creatinine (0.6-1.4) mg/dl BUN/Creatinine Ratio (10-20) Glucose (70-99) mg/dl POC Glucose 169 H 192 H (70-99) Hemoglobin A1c 9.0 H (4.5-5.6) % Calcium (8.5-10.1) mg/dl AST (15-37) U/L Albumin (3.4-5.0) gm/dl Globulin (2.5-4.0) gm/dl Albumin/Globulin Ratio (0.9-2) Beta-Hydroxybutyric Acd (0.2-2.81) mg/dl Urine Appearance (Clear) Urine Protein (Negative) Urine Blood (Negative) Ur Leukocyte Esterase (Negative) Urine WBC (Auto) (0-5) /hpf Urine RBC (Auto) (0-4) /hpf U Hyaline Cast (Auto) (0-5) /lpf U Epithel Cells (Auto) (0-5) /lpf Granular Casts (0) /lpf 05/15/19 05/15/19 05/15/19 Range/Units 10:57 11:32 12:30 WBC (4.8-10.8) K/uL RBC (4.7-6.1) M/uL Hgb (14.0-18.0) g/dL Hct (42-52) % RDW Std Deviation (36.4-46.3) fL Immature Gran # (Auto) (0.00-0.02) K/uL Neut # (Auto) (1.4-6.5) K/uL [place] # (Auto) (0.11-0.59) K/uL Sodium (136-145) mmol/L Potassium (3.5-5.1) mmol/L BUN (7-18) mg/dl Creatinine (0.6-1.4) mg/dl BUN/Creatinine Ratio (10-20) Glucose (70-99) mg/dl POC Glucose 181 H 185 H 202 H (70-99) Hemoglobin A1c (4.5-5.6) % Calcium (8.5-10.1) mg/dl AST (15-37) U/L Albumin (3.4-5.0) gm/dl Globulin (2.5-4.0) gm/dl Albumin/Globulin Ratio (0.9-2) Beta-Hydroxybutyric Acd (0.2-2.81) mg/dl Urine Appearance (Clear) Urine Protein (Negative) Urine Blood (Negative) Ur Leukocyte Esterase (Negative) Urine WBC (Auto) (0-5) /hpf Urine RBC (Auto) (0-4) /hpf U Hyaline Cast (Auto) (0-5) /lpf U Epithel Cells (Auto) (0-5) /lpf Granular Casts (0) /lpf 05/15/19 05/15/19 05/15/19 Range/Units 13:37 14:38 15:32 WBC (4.8-10.8) K/uL RBC (4.7-6.1) M/uL Hgb (14.0-18.0) g/dL Hct (42-52) % RDW Std Deviation (36.4-46.3) fL Immature Gran # (Auto) (0.00-0.02) K/uL Neut # (Auto) (1.4-6.5) K/uL [place] # (Auto) (0.11-0.59) K/uL Sodium (136-145) mmol/L Potassium (3.5-5.1) mmol/L BUN (7-18) mg/dl Creatinine (0.6-1.4) mg/dl BUN/Creatinine Ratio (10-20) Glucose (70-99) mg/dl POC Glucose 198 H 209 H 186 H (70-99) Hemoglobin A1c (4.5-5.6) % Calcium (8.5-10.1) mg/dl AST (15-37) U/L Albumin (3.4-5.0) gm/dl Globulin (2.5-4.0) gm/dl Albumin/Globulin Ratio (0.9-2) Beta-Hydroxybutyric Acd (0.2-2.81) mg/dl Urine Appearance (Clear) Urine Protein (Negative) Urine Blood (Negative) Ur Leukocyte Esterase (Negative) Urine WBC (Auto) (0-5) /hpf Urine RBC (Auto) (0-4) /hpf U Hyaline Cast (Auto) (0-5) /lpf U Epithel Cells (Auto) (0-5) /lpf Granular Casts (0) /lpf 05/15/19 05/15/19 Range/Units 16:38 16:39 WBC (4.8-10.8) K/uL RBC (4.7-6.1) M/uL Hgb (14.0-18.0) g/dL Hct (42-52) % RDW Std Deviation (36.4-46.3) fL Immature Gran # (Auto) (0.00-0.02) K/uL Neut # (Auto) (1.4-6.5) K/uL [place] # (Auto) (0.11-0.59) K/uL Sodium (136-145) mmol/L Potassium (3.5-5.1) mmol/L BUN (7-18) mg/dl Creatinine (0.6-1.4) mg/dl BUN/Creatinine Ratio (10-20) Glucose (70-99) mg/dl POC Glucose 318 H* 209 H (70-99) Hemoglobin A1c (4.5-5.6) % Calcium (8.5-10.1) mg/dl AST (15-37) U/L Albumin (3.4-5.0) gm/dl Globulin (2.5-4.0) gm/dl Albumin/Globulin Ratio (0.9-2) Beta-Hydroxybutyric Acd (0.2-2.81) mg/dl Urine Appearance (Clear) Urine Protein (Negative) Urine Blood (Negative) Ur Leukocyte Esterase (Negative) Urine WBC (Auto) (0-5) /hpf Urine RBC (Auto) (0-4) /hpf U Hyaline Cast (Auto) (0-5) /lpf U Epithel Cells (Auto) (0-5) /lpf Granular Casts (0) /lpf
[2019-05-15 12:14] LABS: INR 1.1 (0.9-1.1); Prothrombin Time 11.4 Seconds (9.0-12.0)
[2019-05-15] MEDS: VANCOMYCIN HCL 1,500 MG in SODIUM CHLORIDE 0.9% 500 ML IV SCH (12:37)
[2019-05-15] MEDS: HEPARIN SODIUM/DEXTROSE 25,000 UNITS/500 ML BAG IV SCH (12:38)
[2019-05-15] MEDS: Heparin IV Low Dose *NO* Bolus IV SCH ×2 (12:51→12:52)
[2019-05-15] MEDS ORDERED: DC IV INSULIN INFUSION 1 EA DEVI SCH ×3 (13:30→17:30)
[2019-05-15 14:14] LABS: Partial Thromboplastin Ratio 1.1
--- NOTE | 2019-05-15 14:21 | Pharmacy Report ---
Pharmacy Glycemic Short Note 2 - Date of Service May 15, 2019 - Glycemic Short BSG Results (Last 24 hours): 05/14/19 05/14/19 05/14/19 12:56 13:57 15:52 Glucose 493 H* POC Glucose 465 H* 378 H* 05/14/19 05/14/19 05/14/19 17:36 17:53 20:30 Glucose 443 H* POC Glucose 425 H* 446 H* 05/14/19 05/14/19 05/14/19 21:29 22:30 23:32 Glucose POC Glucose 388 H* 369 H* 283 H 05/15/19 05/15/19 05/15/19 00:27 00:28 01:31 Glucose 222 H POC Glucose 229 H 210 H 05/15/19 05/15/19 05/15/19 02:32 03:32 04:29 Glucose POC Glucose 150 H 143 H 130 H 05/15/19 05/15/19 05/15/19 05:42 06:34 06:50 Glucose 100 H POC Glucose 133 H 102 H 05/15/19 05/15/19 05/15/19 07:30 08:43 09:36 Glucose POC Glucose 98 169 H 192 H 05/15/19 05/15/19 05/15/19 10:57 11:32 12:30 Glucose POC Glucose 181 H 185 H 202 H 05/15/19 13:37 Glucose POC Glucose 198 H OUTPATIENT ANTIDIABETIC REGIMEN: * Lantus 90 units BID + Novolog 40 AC * A1c 9.0% 05/15/19- may be unreliable in setting of CKD ASSESSMENT: * Continuing on vancomycin/zosyn, patient's RACHEL improving, SCR down to 2.84 from 4.11, bicarb infusion currently held, heparin gtt started at 20 ml/hr * Patient's BSGs trended down overnight with 90 units of lantus + insulin infusion. Drip running at 4.4 this morning, gave orders to cut rate 50% to 2.2 units/hr when BSG 98 before breakfast rather than hold and restart at 2.6 units/hr * Lantus dose given this morning to help transition off of insulin infusion. 72 units (20% of patient's home dose) due to uncertain lantus needs with changing drip rates. * Patient is eating which has complicated transition, using carb ratio of 4, tightened at lunch when BSGs in upper 180s. Did continue insulin infusion rate at 2.6 units/hr (an increase from the 2.2 units/hr). Current carb ratio seems appropriate as BSG did not abruptly change after lunch discontinuation. Current correction factor based on weight based stress of 3. May need to tighten if BSGs trend up once drip is stopped. * Will stop insulin infusion with dinner BSG. Evening lantus dose to be given at this time, BSG coverage should be provided with novolog. PLAN FOR INPATIENT GLYCEMIC CONTROL: * Hold outpatient oral diabetes medications * Basal insulin * Lantus 72 units this morning, 90 units with dinner * Bolus insulin * NovoLog per scale ACHS or Q6hrs while NPO * Goal Range: Low 120 mg/dL - High 150 mg/dL * Correction Factor: 15 mg/dL/unit * Nutritional / Prandial insulin per carb ratio of 1 unit per 3.5 grams CHO consumed PLAN FOR DISCHARGE: * to be decided
[2019-05-15] MEDS ORDERED: DC IV INSULIN INFUSION 1 EA DEVI ONE (16:30)
[2019-05-15 19:15] LABS: Partial Thromboplastin Ratio 1.3; Partial Thromboplastin Time 34.1 Seconds (21.0-31.0)
[2019-05-15] MEDS ORDERED: HEPARIN IV BOLUS 4,500 UNITS in SYRINGE 0 ML IV STA (20:12)
[2019-05-15] MEDS ORDERED: HEPARIN 100 UNIT/ML 5ML FLUSH FLUSH PRN (22:58)
[2019-05-16] MEDS: INSULIN ASPART 100 UNITS/ML 3 ML PEN SC SCH ×6 (00:41→21:26)
[2019-05-16] MEDS: PIPERACILLIN/TAZOBACTAM 4.5 GM in DEXTROSE 5% 100 ML IV SCH ×3 (02:02→17:32)
[2019-05-16 02:30] LABS: Partial Thromboplastin Ratio 1.5
[2019-05-16] MEDS ORDERED: HEPARIN IV BOLUS 4,000 UNITS in SYRINGE 0 ML IV ONE ×2 (02:53→19:15)
[2019-05-16] MEDS: LEVOTHYROXINE SODIUM 125 MCG TABLET PO SCH (06:28)
[2019-05-16 07:01] LABS: BUN Creatinine Ratio 22.6 (10-20); Calcium 8.5 mg/dl (8.5-10.1); Creatinine Clr Calc Pharmacy 36.5 ml/min; Est GFR (African American) 31.4; Est GFR (Non-African American) 27.1; Potassium 3.9 mmol/L (3.5-5.1)
[2019-05-16] MEDS: SERTRALINE HCL 100 MG TABLET PO SCH (07:21)
[2019-05-16] MEDS: CHOLECALCIFEROL 1,000 UNITS TAB PO SCH (07:21)
[2019-05-16] MEDS: OMEGA-3 (PURIFIED FISH OIL) 1 GM CAP PO SCH (07:22)
[2019-05-16] MEDS: ALBUT/IPRATROP 3MG/0.5MG NEB 3 ML VIAL NEB SCH ×4 (07:36→19:14)
--- NOTE | 2019-05-16 08:31 | Pharmacy Report ---
Pharmacy Abx Dose Progress Nt - Date of Service May 16, 2019 - Pharmacy Dosing Scope The patient is currently receiving the following antimicrobial agents per Pharmacy consult: Vancomycin 1500 mg IV every 24 hours - Objective Vital Signs (Past 12hrs): Vital Signs Temp Pulse Pulse Resp BP Pulse Ox 05/16/19 07:39 69 18 93 05/16/19 07:08 36.6 C 85 19 109/57 L 92 05/16/19 04:38 37.1 C 84 18 129/72 93 05/16/19 00:39 36.8 C 96 H 19 120/70 97 05/15/19 23:40 88 Lab Results (24hrs): Laboratory Tests (24 Hours) 05/16/19 05/16/19 06:05 06:05 Creatinine 2.24 H D Est Cr Clr Drug Dosing 36.5 Random Vancomycin 19.2 - Assessment & Plan Assessment 78 year old M receiving IV Vancomycin and Zosyn for treatment of sepsis, likely RLL abscess vs pnx source Day # 3 of antimicrobial therapy Plan Vancomycin IV * Random level of 19.2 mcg/mL is therapeutic after just 2 total doses, drawn 18 hours after last dose * Continue dose of 1500 mg (12mg/kg) IV every 24 hours, as patient still in AR[facility] and at risk for accumulation for BMI 40.5kg/m2 * Goal trough level for sepsis, pulmonary source: 15 to 20 mcg/mL * Trough level ordered for: 05/17/19 * Less than traditional dose and extended dosing interval selected due to likelihood of drug accumulation in obese patient/CKD. Piperacillin/tazobactam * Continue 4.5 g IV extended infusion every 8 hours for CrCl 20 mL/min or greater and BMI > 35. Pharmacy will continue to follow and will adjust dose/frequency as necessary. Thank you.
[2019-05-16] MEDS: HEPARIN SODIUM/DEXTROSE 25,000 UNITS/500 ML BAG IV SCH (09:24)
[2019-05-16] MEDS: INSULIN GLARGINE 100 UNIT/ML VIAL SC SCH ×2 (09:25→21:27)
[2019-05-16 11:26] LABS: Partial Thromboplastin Ratio 1.4; Partial Thromboplastin Time 37.3 Seconds (21.0-31.0)
[2019-05-16] MEDS: VANCOMYCIN HCL 1,500 MG in SODIUM CHLORIDE 0.9% 500 ML IV SCH (12:24)
[2019-05-16] MEDS ORDERED: COUGH DROP (SUGAR FREE) LOZ 24 LOZ/1 BOX BUCCAL STA (12:27)
[2019-05-16] MEDS ORDERED: COUGH DROP (SUGAR FREE) LOZ 24 LOZ/1 BOX BUCCAL ONE (12:28)
[2019-05-16] MEDS ORDERED: HEPARIN IV BOLUS 4,500 UNITS in SYRINGE 0 ML IV ONE (12:30)
--- NOTE | 2019-05-16 14:48 | Pharmacy Report ---
Pharmacy Glycemic Short Note 2 - Date of Service May 16, 2019 - Glycemic Short BSG Results (Last 24 hours): 05/15/19 05/15/19 05/15/19 15:32 16:38 16:39 Glucose POC Glucose 186 H 318 H* 209 H 05/15/19 05/15/19 05/16/19 20:05 23:58 02:06 Glucose POC Glucose 218 H 220 H 198 H 05/16/19 05/16/19 05/16/19 06:05 07:11 : Glucose 154 H POC Glucose 144 H 213 H OUTPATIENT ANTIDIABETIC REGIMEN: * Lantus 90 units BID + Novolog 40 AC * A1c 9.0% 05/15/19- may be unreliable in setting of CKD ASSESSMENT: 05/16/19: * Patient was successfully transitioned from IV --> SQ insulin yesterday. * BSGs have been slightly elevated, but insulin regimen was adjusted this morning to provide additional insulin. * Will continue to adjust as needed. 05/15/19 * Continuing on vancomycin/zosyn, patient's RACHEL improving, SCR down to 2.84 from 4.11, bicarb infusion currently held, heparin gtt started at 20 ml/hr * Patient's BSGs trended down overnight with 90 units of lantus + insulin infusion. Drip running at 4.4 this morning, gave orders to cut rate 50% to 2.2 units/hr when BSG 98 before breakfast rather than hold and restart at 2.6 units/hr * Lantus dose given this morning to help transition off of insulin infusion. 72 units (20% of patient's home dose) due to uncertain lantus needs with changing drip rates. * Patient is eating which has complicated transition, using carb ratio of 4, tightened at lunch when BSGs in upper 180s. Did continue insulin infusion rate at 2.6 units/hr (an increase from the 2.2 units/hr). Current carb ratio seems appropriate as BSG did not abruptly change after lunch discontinuation. Current correction factor based on weight based stress of 3. May need to tighten if BSGs trend up once drip is stopped. * Will stop insulin infusion with dinner BSG. Evening lantus dose to be given at this time, BSG coverage should be provided with novolog. PLAN FOR INPATIENT GLYCEMIC CONTROL: * Hold outpatient oral diabetes medications * Basal insulin * Lantus 90 units SQ BID * Bolus insulin * NovoLog per scale ACHS or Q6hrs while NPO * Goal Range: Low 120 mg/dL - High 150 mg/dL * Correction Factor: 8 mg/dL/unit * Nutritional / Prandial insulin per carb ratio of 1 unit per 2 grams CHO consumed PLAN FOR DISCHARGE: * A1c 9.0% indicates sub-optimal glycemic control as an outpatient. * Would prefer that A1c be less than 8%. * Consider adjusting insulin dosing on discharge. * Recommend f/u with PCP after discharge to work toward optimizing A1c.
--- NOTE | 2019-05-16 16:25 | Hospitalist Progress Note ---
Date of Service May 16, 2019 Assessment & Plan (1) Sepsis: Possible sepsis likely related to recent RLL abscess Had biopsy recently with pathology negative for malignancy but abscess reported Continue to monitor leukocytosis Blood cultures negative day 1 Will continue antibiotics (broad spectrum for now) until negative for at least 48h and then switch to augmentin for 21 day antibiotic therapy. (2) Pneumonia: Imaging studies reports RLL mass unchanged from prior Likely abscess vs pneumonia per biospy results Continue management as above (3) Acute renal failure: (4) CKD (chronic kidney disease) stage 3, GFR 30-59 ml/min: RACHEL on CKD. Last Cr was 1.5 in 11/2018 Was 4.11 on admission, now 2.24 RACHEL likely ATN in the setting of sepsis. Urine sodium 68 Avoid nephrotoxins Continue to monitor Cr (5) Hyperkalemia: K was 7.9 on admission Now 3.9. Resolved Likely in setting of RACHEL on CKD and ACEI Continue to hold lisinopril Monitor (6) Adenocarcinoma of lower esophagus: Per Dr Snyder's recent note. Patient is s/p FOLFOX with remission Will follow up with oncology outpatient (7) Morbid obesity: Discussed need for weight management (8) Depression: Stable Not suicidal Continue sertraline (9) HTN (hypertension): Controlled Will continue to hold lisinopril as above (10) Type 2 diabetes mellitus: A1c is 9 Reports he takes lantus 90U BID and novolog 40U tid ac Pharm on board for glycemic management (11) Hypothyroidism: TSH 3.1 Continue levothyroxine (12) Hyponatremia: Pseudohyponatremia Na on admission was 129. Blood glucose was 493 Corrected Na for glucose was 135 Na today is 136 (13) DVT prophylaxis: H/o of malignancy and right LE DVT Patient was on lovenox per previous Dr Snyder's note Patient reported he was changed to eliquis about 2 weeks ago Discussed with Pharm yesterday. Due to renal status, started heparin drip for now If CrCl continue to improve, will consider resuming low dose eliquis tomorrow Subjective Still reports weakness. Reports no cough today. Denied any shortness of breath, fevers, chills, nausea or vomiting Review of Systems Review of Systems: All systems reviewed and unremarkable except for mentioned above. Physical Exam Physical Exam: General: Well nourished, well hydrated , average body habitus, no acute distress and not ill appearing Eyes: PERRL, conjunctivae normal, not pale, anicteric sclerae, EOM intact bilaterally ENMT: External ear and nose normal, oropharynx normal Neck: Normal visual inspection, no tracheal deviation, no swelling noted Respiratory: Normal respiratory effort, no respiratory distress, Reduced breath sounds both bases. Mild crackles on right lung zone Cardiovascular: Pulse is RRR. S1 S2 Extremities: no pedal edema Gastrointestinal (Abdomen): Abdomen is not distended, soft, non-tender to palpation, no guarding, no palpable hepatosplenomegaly, normal bowel sounds Musculoskeletal: No cyanosis or clubbing Neurologic: Alert and oriented x 3, No focal weakness, sensation grossly intact, generally weak Psychiatric: Alert and oriented x 3, euthymic affect, no depressed affect Results & Data Vital Signs (Past 12 Hours) Vital Signs Temp Pulse Pulse Resp BP BP Pulse Ox 05/16/19 15:53 36.6 C 86 18 129/67 94 05/16/19 11:23 88 20 95 05/16/19 10:50 37.0 C 87 20 143/67 H 93 05/16/19 08:00 88 05/16/19 07:39 69 18 93 05/16/19 07:08 36.6 C 85 19 109/57 L 92 05/16/19 07:00 88 05/16/19 04:38 37.1 C 84 18 129/72 93 Laboratory Results Laboratory Results - last 24 hr 05/15/19 05/15/19 05/15/19 16:38 16:39 18:54 APTT 34.1 H PTT Ratio 1.3 Sodium Potassium Chloride Carbon Dioxide Anion Gap BUN Creatinine Est Cr Clr Drug Dosing Est GFR ( Amer) Est GFR (Non-Af Amer) BUN/Creatinine Ratio Glucose POC Glucose 318 H* 209 H Calcium Random Vancomycin 05/15/19 05/15/19 05/16/19 20:05 23:58 02:06 APTT PTT Ratio Sodium Potassium Chloride Carbon Dioxide Anion Gap BUN Creatinine Est Cr Clr Drug Dosing Est GFR ( Amer) Est GFR (Non-Af Amer) BUN/Creatinine Ratio Glucose POC Glucose 218 H 220 H 198 H Calcium Random Vancomycin 05/16/19 05/16/19 05/16/19 02:13 06:05 06:05 APTT 41.0 H PTT Ratio 1.5 Sodium 135 L Potassium 3.9 Chloride 102 Carbon Dioxide 24 Anion Gap 9.0 BUN 51 H Creatinine 2.24 H D Est Cr Clr Drug Dosing 36.5 Est GFR ( Amer) 31.4 Est GFR (Non-Af Amer) 27.1 BUN/Creatinine Ratio 22.6 H Glucose 154 H POC Glucose Calcium 8.5 Random Vancomycin 19.2 05/16/19 05/16/19 05/16/19 07:11 11:08 11:19 APTT 37.3 H PTT Ratio 1.4 Sodium Potassium Chloride Carbon Dioxide Anion Gap BUN Creatinine Est Cr Clr Drug Dosing Est GFR ( Amer) Est GFR (Non-Af Amer) BUN/Creatinine Ratio Glucose POC Glucose 144 H 213 H Calcium Random Vancomycin 05/16/19 16:24 APTT PTT Ratio Sodium Potassium Chloride Carbon Dioxide Anion Gap BUN Creatinine Est Cr Clr Drug Dosing Est GFR ( Amer) Est GFR (Non-Af Amer) BUN/Creatinine Ratio Glucose POC Glucose 277 H Calcium Random Vancomycin
[2019-05-16 18:58] LABS: Partial Thromboplastin Ratio 1.6; Partial Thromboplastin Time 42.4 Seconds (21.0-31.0)
[2019-05-17] MEDS: PIPERACILLIN/TAZOBACTAM 4.5 GM in DEXTROSE 5% 100 ML IV SCH (01:01)
[2019-05-17] MEDS: HEPARIN SODIUM/DEXTROSE 25,000 UNITS/500 ML BAG IV SCH (01:39)
[2019-05-17 02:05] LABS: Partial Thromboplastin Ratio 1.7
[2019-05-17 02:16] LABS: Partial Thromboplastin Time 45.1 Seconds (21.0-31.0)
[2019-05-17] MEDS ORDERED: HEPARIN IV BOLUS 4,000 UNITS in SYRINGE 0 ML IV STA (03:11)
[2019-05-17] MEDS: LEVOTHYROXINE SODIUM 125 MCG TABLET PO SCH (05:41)
[2019-05-17 06:38] LABS: Hemoglobin 9.4 g/dL (14.0-18.0); Mean Corpuscular Hemoglobin 30.5 pg (25-34); Mean Corpuscular Hgb Conc 32.4 g/dL (32-36); Mean Corpuscular Volume 94.2 fL (80-100); Mean Platelet Volume 8.4 fL (7.4-10.4); Platelet Count 406 K/uL (130-400); RDW Coefficient of Variation 13.6 % (11.5-14.5); RDW Standard Deviation 46.4 fL (36.4-46.3); Red Blood Count 3.08 M/uL (4.7-6.1); White Blood Count 11.71 K/uL (4.8-10.8)
[2019-05-17 07:15] LABS: BUN Creatinine Ratio 17.4 (10-20); Calcium 8.8 mg/dl (8.5-10.1); Creatinine Clr Calc Pharmacy 41.2 ml/min; Est GFR (African American) 37.1; Potassium 3.7 mmol/L (3.5-5.1)
[2019-05-17] MEDS: ALBUT/IPRATROP 3MG/0.5MG NEB 3 ML VIAL NEB SCH ×4 (07:22→19:17)
[2019-05-17] MEDS: CARBOHYDRATES FOR HYPOGLYCEMIA PO PRN (07:30)
[2019-05-17] MEDS: CHOLECALCIFEROL 1,000 UNITS TAB PO SCH (08:37)
[2019-05-17] MEDS: OMEGA-3 (PURIFIED FISH OIL) 1 GM CAP PO SCH (08:37)
[2019-05-17] MEDS: SERTRALINE HCL 100 MG TABLET PO SCH (08:37)
[2019-05-17] MEDS: INSULIN ASPART 100 UNITS/ML 3 ML PEN SC SCH ×4 (08:46→20:28)
[2019-05-17] MEDS ORDERED: INSULIN GLARGINE 100 UNIT/ML VIAL SC SCH ×2 (09:00→21:00)
[2019-05-17] MEDS: AMLODIPINE BESYLATE 5 MG TAB PO SCH (09:22)
[2019-05-17] MEDS: APIXABAN 5 MG TABLET PO SCH ×2 (09:22→20:29)
[2019-05-17 10:21] LABS: Partial Thromboplastin Ratio 1.1; Partial Thromboplastin Time 30.4 Seconds (21.0-31.0)
--- NOTE | 2019-05-17 10:27 | Nephrology Progress Note ---
Date of Service May 17, 2019 Assessment & Plan (1) Acute renal failure: Patient with acute kidney injury likely due to ischemic ATN in setting of sepsis. His creatinine on admission was 4.1. His baseline is not clear likely in the twos. Creatinine today down to 1.9. Patient gets his care at the ID. CT scan of the abdomen showed atrophic kidneys with no hydronephrosis. Management of ATN is supportive. -Monitor input output with daily BMP -Avoid nephrotoxins such as NSAIDs and contrast -He will need renal follow-up after discharge. (2) Hyperkalemia: Improved with isotonic bicarbonate infusion. Patient should be on a renal diet. Monitor potassium daily. K3.7 today. (3) Sepsis: Likely due to pneumonia. Improved with vancomycin and Zosyn, now on Augmentin per primary team. Renally dose antibiotics (4) Metabolic acidosis: Due to acute kidney injury. Resolved Subjective Patient feels much better today. No shortness of breath. He remains weak. No urinary symptoms. Creatinine is downtrending to 1.9 today. Review of Systems Review of Systems: All systems reviewed & are unremarkable except as noted in HPI & below Physical Exam Physical Exam: General exam: Appears comfortable, no acute distress HEENT: Pupils are equal and reactive to light Neck: No JVD, neck is supple trachea is midline Respiratory system: Crackles on the right space but clear on the left Gastrointestinal: Abdomen is soft, non distended, non tender, bowel sounds are present CVS: Regular rate and rhythm. No murmurs, rubs or gallops Musculoskeletal: No joint or muscle tenderness Extremities: Non tender, no edema, peripheral pulses are present Neuro: Oriented, no tremors, no focal neurological deficits Skin: No rashes Results & Data Vital Signs (Past 12 Hours) Vital Signs Temp Pulse Pulse Resp BP BP Pulse Ox 05/17/19 07:20 36.7 C 18 146/73 H 93 05/17/19 03:52 37.0 C 90 18 148/72 H 93 05/16/19 23:59 83 05/16/19 23:07 37.1 C 81 147/77 H 94 Laboratory Results Laboratory Results - last 24 hr 05/16/19 05/16/19 05/16/19 11:08 11:19 16:24 WBC RBC Hgb Hct MCV MCH MCHC RDW Std Deviation RDW Coeff of Katja Plt Count MPV APTT 37.3 H PTT Ratio 1.4 Sodium Potassium Chloride Carbon Dioxide Anion Gap BUN Creatinine Est Cr Clr Drug Dosing Est GFR ( Amer) Est GFR (Non-Af Amer) BUN/Creatinine Ratio Glucose POC Glucose 213 H 277 H Calcium 05/16/19 05/16/19 05/17/19 18:30 21:12 01:30 WBC RBC Hgb Hct MCV MCH MCHC RDW Std Deviation RDW Coeff of Katja Plt Count MPV APTT 42.4 H 45.1 H* PTT Ratio 1.6 1.7 Sodium Potassium Chloride Carbon Dioxide Anion Gap BUN Creatinine Est Cr Clr Drug Dosing Est GFR ( Amer) Est GFR (Non-Af Amer) BUN/Creatinine Ratio Glucose POC Glucose 173 H Calcium 05/17/19 05/17/19 05/17/19 06:10 06:10 07:43 WBC 11.71 H RBC 3.08 L Hgb 9.4 L Hct 29.0 L MCV 94.2 MCH 30.5 MCHC 32.4 RDW Std Deviation 46.4 H RDW Coeff of Katja 13.6 Plt Count 406 H MPV 8.4 APTT PTT Ratio Sodium 138 Potassium 3.7 Chloride 106 Carbon Dioxide 25 Anion Gap 7.0 BUN 34 H Creatinine 1.95 H Est Cr Clr Drug Dosing 41.2 Est GFR ( Amer) 37.1 Est GFR (Non-Af Amer) 32.0 BUN/Creatinine Ratio 17.4 Glucose 53 L* POC Glucose 117 H Calcium 8.8 05/17/19 10:02 WBC RBC Hgb Hct MCV MCH MCHC RDW Std Deviation RDW Coeff of Katja Plt Count MPV APTT 30.4 PTT Ratio 1.1 Sodium Potassium Chloride Carbon Dioxide Anion Gap BUN Creatinine Est Cr Clr Drug Dosing Est GFR ( Amer) Est GFR (Non-Af Amer) BUN/Creatinine Ratio Glucose POC Glucose Calcium (1) Acute renal failure Acute renal failure type: unspecified Qualified Code(s): N17.9 - Acute kidney failure, unspecified
[2019-05-17] MEDS ORDERED: VANCOMYCIN TROUGH ONE (11:30)
--- NOTE | 2019-05-17 15:08 | Pharmacy Report ---
Pharmacy Glycemic Short Note 2 - Date of Service May 17, 2019 - Glycemic Short BSG Results (Last 24 hours): 05/16/19 05/16/19 05/17/19 16:24 21:12 06:10 Glucose 53 L* POC Glucose 277 H 173 H 05/17/19 05/17/19 07:43 11:21 Glucose POC Glucose 117 H 131 H OUTPATIENT ANTIDIABETIC REGIMEN: * Lantus 90 units BID + Novolog 40 AC * A1c 9.0% 05/15/19- may be unreliable in setting of CKD ASSESSMENT: 05/17/19: * Bryan received a total of 267 units of SQ insulin yesterday * 180 units of basal * 87 units of bolus * BSGs ranged from 144 - 277 mg/dL * Pt experienced AM hypoglycmia; BSG 53 mg/dL. RN reports decreased appetite. Current regimen is highly basal weighted. I decreased AM Lantus dose by 20% and will change PM dose to a scale incase patient continues to trend downward. * Post prandial BSGs have improved after tightening CF and CR yesterday. Will continue same for now since lunch BSG is 131 mg/dL. 05/16/19: * Patient was successfully transitioned from IV --> SQ insulin yesterday. * BSGs have been slightly elevated, but insulin regimen was adjusted this morning to provide additional insulin. * Will continue to adjust as needed. 05/15/19 * Continuing on vancomycin/zosyn, patient's RACHEL improving, SCR down to 2.84 from 4.11, bicarb infusion currently held, heparin gtt started at 20 ml/hr * Patient's BSGs trended down overnight with 90 units of lantus + insulin infusion. Drip running at 4.4 this morning, gave orders to cut rate 50% to 2.2 units/hr when BSG 98 before breakfast rather than hold and restart at 2.6 units/hr * Lantus dose given this morning to help transition off of insulin infusion. 72 units (20% of patient's home dose) due to uncertain lantus needs with changing drip rates. * Patient is eating which has complicated transition, using carb ratio of 4, tightened at lunch when BSGs in upper 180s. Did continue insulin infusion rate at 2.6 units/hr (an increase from the 2.2 units/hr). Current carb ratio seems appropriate as BSG did not abruptly change after lunch discontinuation. Current correction factor based on weight based stress of 3. May need to tighten if BSGs trend up once drip is stopped. * Will stop insulin infusion with dinner BSG. Evening lantus dose to be given at this time, BSG coverage should be provided with novolog. PLAN FOR INPATIENT GLYCEMIC CONTROL: * Hold outpatient oral diabetes medications * Basal insulin * Lantus 70 units SQ this morning, then BID per scale: - 60 units for BSG less than 140 mg/dL - 70 units for BSG 140 mg/dL or more * Bolus insulin * NovoLog per scale ACHS or Q6hrs while NPO * Goal Range: Low 120 mg/dL - High 150 mg/dL * Correction Factor: 8 mg/dL/unit * Nutritional / Prandial insulin per carb ratio of 1 unit per 2 grams CHO consumed PLAN FOR DISCHARGE: * A1c 9.0% indicates sub-optimal glycemic control as an outpatient. * Would prefer that A1c be less than 8%. * Consider adjusting insulin dosing on discharge. * Recommend f/u with PCP after discharge to work toward optimizing A1c.
--- NOTE | 2019-05-17 17:08 | Hospitalist Progress Note ---
Date of Service May 17, 2019 Assessment & Plan (1) Sepsis: Possible sepsis likely related to recent RLL abscess Had biopsy recently with pathology negative for malignancy but abscess reported Leukocytosis has reduced from 42 on admission to 11 today Blood cultures still negative Changed iv antibiotics to po augmentin for 21 day antibiotic therapy. (2) Pneumonia: Imaging studies reports RLL mass unchanged from prior Likely abscess vs pneumonia per biospy results Continue management as above (3) Metabolic acidosis: (4) Acute renal failure: (5) CKD (chronic kidney disease) stage 3, GFR 30-59 ml/min: RACHEL on CKD. Last Cr was 1.5 in 11/2018 Was 4.11 on admission, now 1.95 RACHEL likely ATN in the setting of sepsis. Urine sodium 68 Avoid nephrotoxins Continue to monitor Cr Metabolic acidosis on admission resolved (6) Hyperkalemia: K was 7.9 on admission Resolved Likely in setting of RACHEL on CKD and ACEI Continue to hold lisinopril Monitor (7) Adenocarcinoma of lower esophagus: Per Dr Snyder's recent note. Patient is s/p FOLFOX with remission Will follow up with oncology outpatient (8) Morbid obesity: Discussed need for weight management (9) Depression: Stable Not suicidal Continue sertraline (10) HTN (hypertension): Controlled Will continue to hold lisinopril as above Will plan discharge without it Started amlodipine today (11) Type 2 diabetes mellitus: A1c is 9 Reports he takes lantus 90U BID and novolog 40U tid ac Pharm on board for glycemic management (12) Hypothyroidism: TSH 3.1 Continue levothyroxine (13) Hyponatremia: Pseudohyponatremia Na on admission was 129. Blood glucose was 493 Corrected Na for glucose was 135 (14) DVT prophylaxis: H/o of malignancy and right LE DVT Patient was on lovenox per previous Dr Snyder's note Patient reported he was changed to eliquis about 2 weeks ago Stopped heparin drip with improved renal function and resumed home eliquis Plan for DC to rehab Subjective Patient seen and examined Reports cough has resolved. Weakness is improving. No other complaints Review of Systems Review of Systems: All systems reviewed and unremarkable except for mentioned above. Physical Exam Physical Exam: General: Well nourished, well hydrated , average body habitus, no acute distress and not ill appearing Eyes: PERRL, conjunctivae normal, not pale, anicteric sclerae, EOM intact bilaterally ENMT: External ear and nose normal, oropharynx normal Neck: Normal visual inspection, no tracheal deviation, no swelling noted Respiratory: Normal respiratory effort, no respiratory distress, Reduced breath sounds both bases. Mild crackles on right lung zone Cardiovascular: Pulse is RRR. S1 S2 no pedal edema Gastrointestinal (Abdomen): Abdomen is not distended, soft, non-tender to palpation, no guarding, no palpable hepatosplenomegaly, normal bowel sounds Musculoskeletal: No cyanosis or clubbing Neurologic: Alert and oriented x 3, No focal weakness, sensation grossly intact Results & Data Vital Signs (Past 12 Hours) Vital Signs Temp Pulse Resp BP BP Pulse Ox 05/17/19 15:17 36.6 C 91 H 20 150/75 H 96 05/17/19 14:00 93 05/17/19 11:30 36.7 C 79 18 137/68 94 05/17/19 07:20 36.7 C 18 146/73 H 93 Laboratory Results Laboratory Results - last 24 hr 05/16/19 05/16/19 05/17/19 18:30 21:12 01:30 WBC RBC Hgb Hct MCV MCH MCHC RDW Std Deviation RDW Coeff of Katja Plt Count MPV APTT 42.4 H 45.1 H* PTT Ratio 1.6 1.7 Sodium Potassium Chloride Carbon Dioxide Anion Gap BUN Creatinine Est Cr Clr Drug Dosing Est GFR ( Amer) Est GFR (Non-Af Amer) BUN/Creatinine Ratio Glucose POC Glucose 173 H Calcium 05/17/19 05/17/19 05/17/19 06:10 06:10 07:43 WBC 11.71 H RBC 3.08 L Hgb 9.4 L Hct 29.0 L MCV 94.2 MCH 30.5 MCHC 32.4 RDW Std Deviation 46.4 H RDW Coeff of Katja 13.6 Plt Count 406 H MPV 8.4 APTT PTT Ratio Sodium 138 Potassium 3.7 Chloride 106 Carbon Dioxide 25 Anion Gap 7.0 BUN 34 H Creatinine 1.95 H Est Cr Clr Drug Dosing 41.2 Est GFR ( Amer) 37.1 Est GFR (Non-Af Amer) 32.0 BUN/Creatinine Ratio 17.4 Glucose 53 L* POC Glucose 117 H Calcium 8.8 05/17/19 05/17/19 05/17/19 10:02 11:21 16:12 WBC RBC Hgb Hct MCV MCH MCHC RDW Std Deviation RDW Coeff of Katja Plt Count MPV APTT 30.4 PTT Ratio 1.1 Sodium Potassium Chloride Carbon Dioxide Anion Gap BUN Creatinine Est Cr Clr Drug Dosing Est GFR ( Amer) Est GFR (Non-Af Amer) BUN/Creatinine Ratio Glucose POC Glucose 131 H 159 H Calcium
[2019-05-17] MEDS: AMOXICILLIN/CLAVULANATE 875 MG TAB PO SCH (18:09)
[2019-05-18] MEDS ORDERED: HEPARIN 100 UNIT/ML 5ML FLUSH FLUSH PRN (01:06)
[2019-05-18] MEDS: LEVOTHYROXINE SODIUM 125 MCG TABLET PO SCH (05:32)
[2019-05-18 06:04] LABS: Hematocrit (blood only) 31.2 % (42-52); Hemoglobin 10.2 g/dL (14.0-18.0); Mean Corpuscular Hemoglobin 31.2 pg (25-34); Mean Corpuscular Hgb Conc 32.7 g/dL (32-36); Mean Corpuscular Volume 95.4 fL (80-100); Mean Platelet Volume 8.2 fL (7.4-10.4); Platelet Count 422 K/uL (130-400); RDW Coefficient of Variation 13.3 % (11.5-14.5); RDW Standard Deviation 46.3 fL (36.4-46.3); Red Blood Count 3.27 M/uL (4.7-6.1); White Blood Count 12.01 K/uL (4.8-10.8)
[2019-05-18 07:02] LABS: BUN Creatinine Ratio 14.8 (10-20); Calcium 9.7 mg/dl (8.5-10.1); Creatinine Clr Calc Pharmacy 49.5 ml/min; Est GFR (African American) 46.4; Est GFR (Non-African American) 40.1; Potassium 3.4 mmol/L (3.5-5.1)
[2019-05-18] MEDS: CARBOHYDRATES FOR HYPOGLYCEMIA PO PRN (07:07)
[2019-05-18] MEDS: ALBUT/IPRATROP 3MG/0.5MG NEB 3 ML VIAL NEB SCH (07:16)
[2019-05-18] MEDS: CHOLECALCIFEROL 1,000 UNITS TAB PO SCH (08:31)
[2019-05-18] MEDS: OMEGA-3 (PURIFIED FISH OIL) 1 GM CAP PO SCH (08:31)
[2019-05-18] MEDS: SERTRALINE HCL 100 MG TABLET PO SCH (08:31)
[2019-05-18] MEDS: APIXABAN 5 MG TABLET PO SCH (08:31)
[2019-05-18] MEDS: AMLODIPINE BESYLATE 5 MG TAB PO SCH (08:31)
[2019-05-18] MEDS: INSULIN ASPART 100 UNITS/ML 3 ML PEN SC SCH ×2 (08:37→13:01)
[2019-05-18] MEDS ORDERED: INSULIN GLARGINE 100 UNIT/ML VIAL SC SCH ×2 (09:00→21:00)
[2019-05-18] MEDS ORDERED: hydroCHLOROthiazide 25 MG TAB PO SCH (09:00)
--- NOTE | 2019-05-18 09:12 | Pharmacy Report ---
Glycemic Control Progress Note - Date of Service May 18, 2019 - Scope Glycemic Pharmacist consulted for glycemic control to write orders per [facility] inpatient glycemic control protocol. - Objective Accuchecks BSG(last 24 hours):: 05/17/19 05/17/19 05/17/19 11:21 16:12 19:40 Glucose POC Glucose 131 H 159 H 133 H 05/18/19 05/18/19 05:41 07:23 Glucose 52 L* POC Glucose 114 H HbA1c:: Hemoglobin A1c 9.0 % (4.5-5.6) H 05/15/19 06:50 - Recent Pertinent Medications The patient is currently receiving: * Basal insulin: Lantus 60-70 units every 12 hours * Correctional Insulin: Novolog Correction per scale ACHS Goal Range: Low 120 mg/dL - High 150 mg/dL Correction Factor: 8 mg/dL/unit * Prandial insulin: Per carb ratio of 1 unit per 2 grams CHO consumed - Outpatient Anti-Diabetic Meds Lantus 90 units BID + Novolog 40 AC - Assessment & Plan ASSESSMENT: * See progress note from 05/14/19 for more background info, in short: * Pt receiving SQ basal bolus insulin regimen for hyperglycemia secondary to baseline DM (outpatient regimen on hold) and patient is on Augmentin. * Patient is currently receiving an average of 170 units of insulin per day * 130 units of basal insulin * 40 units of prandial/correctional insulin * BSGs ranging 53 - 159 mg/dl over the past 24hrs * Changes needed to insulin regimen: * AM Fasting BSG = 52 mg/dl. This is slightly below goal range for patient based on inpatient targets and co-morbidities. The patient ad a low blood sugar yesterday and this morning. Will plan to significantly reduce Lantus. Forty-five (45) units given this AM. Scale for this evening -- lowest dose will be 50% of yesterday's Lantus and highest dose will be 75% of yesterday's Lantus dose. * Post-prandial BSGs are in range therefore no changes needed to CF/CR. * Total daily dose = ~150 units/day. Patient's regimen very basal heavy right now so pushing towards a more equal split. PLAN FOR INPATIENT GLYCEMIC CONTROL: * Decreasing Lantus 45 units SQ in the morning and then 30-50 units at bedtime * Lantus 30 units if BSG < 160 mg/dL * Lantus 40 units if BSG 160-200 mg/d: * Lantus 50 units if BSG > 200 mg/dL * Continuing correction factor of 8 mg/dl/unit * Continuing carb ratio of 1 unit per 2 grams CHO consumed * Continuing goal range of Low 120 mg/dL - High 150 mg/dL * Please note that the plan above was derived based on current level of insulin resistance and hospital stress. These recommendations are appropriate for inpatient admission only. Plan of care upon discharge will need to be reassessed to avoid potential outpatient hypo/hyperglycemia. Thank you.
[2019-05-18] MEDS ORDERED: AMLODIPINE BESYLATE 5 MG TAB PO ONE (09:30)
[2019-05-18] MEDS: AMOXICILLIN/CLAVULANATE 875 MG TAB PO SCH (09:34)
--- NOTE | 2019-05-18 15:21 | Discharge Summary ---
Date of Service May 18, 2019 Admission HPI Per Admitting Provider 78-year-old white male with a past medical history of lung mass, pneumonia, DVT, obesity, hypertension, hypothyroidism, chronic kidney disease who comes in complaining of generalized weakness. He said it got progressively worse over the last couple of days when he came into the emergency room he was found to have a blood sugar of 500 and white blood cell count of 42. He was also found to have a potassium of 7.9 and was hyponatremic and hyperkalemic. He was seen at the [facility] on 13 May. At that tome they wanted to admit him, but he didn't want to stay. During that encounter, his WBCs were 17.6 and was sent home on Augmentin and Doxycycline. Today his WBCs are 42, but he doesn't look bad at all. At the [facility] his CXR showed a RLL masslike consolidation favoring to reflect Pneumonia-underlying malignancy not excluded. PMH-lung cancer, DVT, chronic kidney disease, obesity, hypertension, hypothyroidism, diabetes. PSH-appendectomy FH mother of pneumonia, father of a CVA, he has 3 healthy children. SOC-quit tobacco 10 years ago was a pack-a-day smoker for 45 years, occasionally drinks alcohol he is a and he retired from a [employer] Principal Diagnosis Right lung abscess Acute on chronic kidney disease Hyperkalemia Metabolic acidosis Poorly controlled diabetes mellitus Discharge Exam General: Well nourished, well hydrated , average body habitus, no acute distress and not ill appearing Eyes: PERRL, conjunctivae normal, not pale, anicteric sclerae, EOM intact bilaterally ENMT: External ear and nose normal, oropharynx normal Neck: Normal visual inspection, no tracheal deviation, no swelling noted Respiratory: Normal respiratory effort, no respiratory distress, Reduced breath sounds both bases. Mild crackles on right lung zone Cardiovascular: Pulse is RRR. S1 S2 no pedal edema Gastrointestinal (Abdomen): Abdomen is not distended, soft, non-tender to palpation, no guarding, no palpable hepatosplenomegaly, normal bowel sounds Neurologic: Alert and oriented x 3, No focal weakness, sensation grossly intact Discharge Data Allergies Allergy/AdvReac Type Severity Reaction Status Date / Time codeine Allergy Intermediate Swelling Verified 05/14/19 14:13 thimerosal Allergy Intermediate Swelling Verified 05/14/19 14:13 Consultations 05/14/19 15:23 ED Decision to Admit Stat 05/14/19 17:45 Consult Infectious Diseases Routine Consult Nephrology Routine Ordered Studies 05/14/19 14:56 CT abd pelvis wo con Stat 1. There are no acute infectious or inflammatory findings in the abdomen or pelvis. 2. The kidneys are atrophic and without hydronephrosis. 3. The bladder is distended. The prostate gland is enlarged and there is evidence of chronic outlet obstruction. 4. A 5.3 cm mass lesion is seen at the right lung base. Correlation with the patient's oncological history will be required. 5. Trace pleural effusions. 6. Constipation. Chest Xray Persistent 4.5 cm right midlung zone opacity. No significant change from the preceding study. Hospital Course (1) Abscess of right lung with pneumonia: (2) Sepsis: Possible sepsis likely related to recent RLL abscess Had biopsy recently with pathology negative for malignancy but abscess reported Leukocytosis has reduced from 42 on admission to 12 today Blood cultures still negative Was initially on iv antibiotics Now changed to po augmentin for 21 day antibiotic therapy till 06/03/19 (3) Metabolic acidosis: (4) Acute renal failure: (5) CKD (chronic kidney disease) stage 3, GFR 30-59 ml/min: RACHEL on CKD. Last Cr was 1.5 in 11/2018 Was 4.11 on admission, now 1.62 RACHEL likely ATN in the setting of sepsis. Urine sodium 68 Avoid nephrotoxins Metabolic acidosis on admission resolved. Required bicarb drip Repeat BMP next week In the setting of RACHEL on CKD and hyperkalemia, Lisinopril discontinued Discharged on amlodipine and hydrochlorothiazide (6) Hyperkalemia: K was 7.9 on admission Resolved Likely in setting of RACHEL on CKD and ACEI Continue to hold lisinopril (7) Adenocarcinoma of lower esophagus: Per Dr Snyder's recent note. Patient is s/p FOLFOX with remission Will follow up with oncology outpatient (8) Morbid obesity: Discussed need for weight management (9) Depression: Stable Not suicidal Continue sertraline (10) HTN (hypertension): Controlled Will continue to hold lisinopril as above Discharged on amlodipine and hydrochlorothiazide for BP management Follow up with PCP (11) Type 2 diabetes mellitus: A1c is 9 Reports he takes lantus 90U BID and novolog 40U tid ac Had hypoglycemic episodes even at lower than reported home dose Discharged to rehab on lantus 45U BID and novolog 20U tid ac To continue monitoring blood glucose control at rehab with continued management Follow up with PCP outpatient (12) Hypothyroidism: TSH 3.1 Continue levothyroxine (13) Hyponatremia: Pseudohyponatremia Na on admission was 129. Blood glucose was 493 Corrected Na for glucose was 135 (14) DVT prophylaxis: H/o of malignancy and right LE DVT Patient was on lovenox per previous Dr Snyder's note Patient reported he was changed to eliquis about 2 weeks ago Due to RACHEL on CKD and very reduced CrCl, eliquis was initially held and patient was on heparin Eliquis was resumed after CrCl improved Total Time Total Time Spent Total Time Spent (In Minutes): 40 Total Time Includes: Examination of the Patient, Discharge Planning and Medication Reconciliation Discharge Plan Discharge Items Patient Disposition: Transfer Inpatient Rehab Fac Reason For Visit: Generalized weakness Discharge Diagnosis: Right lung abscess Acute on chronic kidney disease Hyperkalemia Metabolic acidosis Poorly controlled diabetes mellitus Condition on Discharge: Good Activity: As commented below Activity Comment: Per Physical therapist instruction Non-emergency contact: Primary Care Provider Call non-emergency contact if: you have any medication questions and your symptoms worsen Follow-up/Referrals: Jovan Ren MD [Primary Care Provider] - Padmaja Rodríguez MD [Physician] - Diet: Carb Consistent or DM2 and Heart Healthy Ambulatory Orders: Basic Metabolic Panel (Routine) Timeframe: [id number] Location: Determined by Patient Ordered By: Candice Hawley Attending Provider Instructions: Mr. Pino. You came to the hospital complaining of generalized weakness and cough. You were evaluated and found to have acute on chronic kidney injury, elevated potassium levels and high acid level in your body (metabolic acidosis). You recently had a biopsy of a lung mass the week before admission which showed abscess. You do have a history of Lower esophagus cancer (adenocarcinoma) and had got chemotherapy, currently in remission. You were treated with antibiotics. You are currently on Augmentin and you are to continue this until 06/03/19. Your kidney function continues to improve. The elevated potassium level normalized. You will need a lab test called BMP (Basic metabolic Panel) next week to monitor your kidney function. Due to these, your lisinopril was stopped. Please stop taking the lisinopril- hydrochlorothiazide or lisinopril you take at home. Your blood pressure medication is currently changed to Tab amlodipine 10mg daily and Tab hydrochlorothiazide 25mg daily until you follow up with your Primary Doctor. You need to follow up with the Kidney doctors/[employer] System Irrigator in the office. Your diabetes has been poorly controlled at home. You reported you take lantus 90Units twice a day and novolog 40Units with meals at home. Your hemoglobin A1c was 9. During your hospital stay, you had episodes of low blood glucose even at lower doses of insulin than you take at home. You are being discharged on lantus 45Units twice a day and novolog 20Units with meal for now. Your blood sugar should be monitored at the rehab facility and adjustments can continue to be made as appropriate. Please follow up with your Primary Doctor for further management. Continue to take your medications as prescribed and follow up with your Primary Doctor. It was a pleasure taking care of you. Pending Studies at Discharge: No Stand-Alone Forms: My [facility] Skilled Items Patient informed of condition?: Yes DNR: No Discharge Level of Care: Acute rehab Communicable Disease: No Discharge Prognosis: Stable Lines: PICC Urinary Catheter: No Medications and DC Order Prescriptions: New amoxicillin-pot clavulanate 875-125 mg Tablet 1 tab PO BIDM 17 Days Qty: 34 RF: 0 amlodipine [Norvasc] 5 mg Tablet 10 mg PO QAM 30 Days Qty: 60 RF: 1 hydrochlorothiazide 25 mg tablet 25 mg PO DAILY Qty: 30 RF: 0 Continued cyanocobalamin (vitamin B-12) 3,000 mcg capsule 3,000 mcg PO DAILY RF: 0 levothyroxine [Levoxyl] 125 mcg Tablet 125 mcg PO DAILY RF: 0 cholecalciferol (vitamin D3) [Vitamin D3] 2,000 unit Tablet 2,000 unit PO DAILY RF: 0 Doyle-3 Fish Oil 300-1,000 mg Capsule 1 cap PO DAILY RF: 0 Eliquis 5 mg Tablet 5 mg PO BID RF: 0 sertraline 100 mg Tablet 200 mg PO DAILY RF: 0 sennosides-docusate sodium [Senokot-S] 8.6-50 mg Tablet 1 tab-cap PO BID PRN (Reason: Constipation) RF: 0 Changed Lantus U-100 Insulin 100 unit/mL Solution 45 unit SUBCUT BID Qty: 0 RF: 0 insulin aspart U-100 100 unit/mL Solution 20 unit SUBCUT AC Qty: 0 RF: 0 Discontinued lisinopril-hydrochlorothiazide 20-25 mg tablet 1 tab PO DAILY RF: 0 enoxaparin 80 mg/0.8 mL syringe 70 mg subcut Q12H RF: 0 lisinopril 5 mg Tablet 5 mg PO DAILY RF: 0 Discharge Orders: Discharge Order (Routine); Ordered 05/18/19 Ordered By: Candice Bustillo/Other Patient Handouts: Diabetes Healthy Meals, Diabetes Carbs, Diabetes Exercise Benefits, Diabetes Exercise Get Started, Diabetes Activity Tips, Diabetes Living Life, A1C Admission Data Admit Date/Time: 05/14/19 15:48 Attending Provider: Candice Parker I. Admit Provider: Joel Isbell Primary Care Provider: Jovan Ren Other Providers: Courtney Kidd ; Joel Isbell ; Chip Sabillon ; Gricelda Marvin ; Elmer Peterson ; Lydia Cordero ; Angelica Meng Japheth E. Other Interventions: Discharge Summary Assessment (RN) Last Done: 05/18/19 13:17 DC Date/Time DO NOT enter until pt leaves facility: 05/18/19 14:42
[2019-05-19] MEDS ORDERED: AMLODIPINE BESYLATE 5 MG TAB PO SCH (09:00)
== END 2019-05-18 14:42 | DRG 871 ==
LOC: ED 12:42 → SUATTDRO 15:48 → 2S 15:48 → 4W 05-17 17:18